=== PATIENT | male | born 1995 | race Caucasian/White ===

== ENCOUNTER 2023-03-04 00:31 | Emergency (ER) | payer OTHER, SELFPAY ==
[2023-03-04 00:44] VITALS: BP 124/72; PULSE 98; RESP 18; TEMP 36.6; O2SAT 97; BMI 37.5
--- NOTE | 2023-03-04 00:57 | XR_ITS ---
The [address] [address] Patient Name: PAUL SCHMITZ MRN: [id number] date: 1995 Sex: M Assigned Patient Location: ED.MAIN Current Patient Location: ER Accession/Order Number: [id number] Exam Date: 03/04/2023 01:30 Report Date: 03/04/2023 01:57 At the request of: HIPOLITO GEORGE Procedure: XR knee RT 4V XR knee RT 4V: HISTORY: trauma trauma COMPARISON: None available. TECHNIQUE: 4 views of the right knee are submitted. FINDINGS: BONES/JOINT SPACES: There is no acute fracture or dislocation. The joint spaces are well-maintained. SOFT TISSUES: There is significant prepatellar soft tissue swelling. XR/XR knee RT 4V IMPRESSION: Significant prepatellar soft tissue swelling. No definitive acute fractures appreciated. Electronically authenticated by: ELIAS JOSHUA Date: 03/04/2023 01:57
[2023-03-04] MEDS: KETOROLAC TROMETHAMINE 60 MG/2 ML VIAL IM (01:19)
--- NOTE | 2023-03-04 01:45 | ED.LOWEXI1 ---
HPI - Extremity Injury (Lower) General Chief Complaint: Extremity Injury, Lower Stated Complaint: KNEE SWOLLEN Time Seen by Provider: 03/04/23 00:48 Source: patient Mode of arrival: Wheelchair History of Present Illness HPI Narrative: The patient is coming to us with right knee pain that started after he was playing softball, the patient slid on his knee and the he has been having pain since then and the swelling has been progressively getting worse he was not able to put any weight on his knee, he have a history of old fracture in his left knee Related Data Previous Rx's Medication Instructions Recorded acetaminophen 650 mg 650 mg PO Q8H PRN pain #20 tabs 03/04/23 tablet,extended release (Tylenol Arthritis Pain) prednisone 50 mg tablet 50 mg PO DAILY #5 tabs 03/04/23 Allergies Allergy/AdvReac Type Severity Reaction Status Date / Time No Known Drug Allergies Allergy Verified 03/04/23 00:50 Review of Systems ROS Status of ROS 10 or more systems reviewed and unremarkable except as noted in history and below PFSH PFSH Social History Smoking status: Former smoker Exam Narrative Exam Narrative: Nurses notes and vital signs reviewed and patient is not hypoxic. General: Well-appearing and in no apparent distress. Skin: Warm, dry, no pallor noted. No rash. Head: Normocephalic, atraumatic. Neck: Supple, non-tender. Eye: Pupils are equal, round and EOMI. No scleral icterus. Ears, Nose, Mouth, and Throat: TM are clear, no nasal mucosal hypertrophy. Oral mucosa is moist, no posterior oropharynx erythema, uvula is mid-line Cardiovascular: Regular Rate and Rhythm without murmur, gallop or rub. Respiratory: No accessory muscle use or respiratory distress. Lungs are clear to auscultation, no wheezing, rales or rhonchi Chest Wall: no tenderness Back: No midline thoracic or lumbar vertebral tenderness. No CVA tenderness Musculoskeletal: Significant swelling of the right knee , limitation of movement due to pain and the patient have no ecchymosis and no open wounds some abrasion on top of the swelling GI: Abdomen is soft, non-distended. Normal bowel sounds. No masses appreciated. No tenderness to palpation. No rebound, guarding, or rigidity noted. Neurological: A&O x4. No cranial nerve dysfunction observed. No truncal ataxia. Moves all extremities. Sensation intact. Psychiatric: Cooperative and interactive. Normal mood and affect. Constitutional Vital Signs, click to edit/add: Last Vital Signs Pulse 98 H 03/04/23 00:44 Resp 18 03/04/23 00:44 BP 124/72 03/04/23 00:44 Pulse Ox 97 03/04/23 00:44 O2 Del Method Room Air 03/04/23 00:44 Course Vital Signs Vital signs: Vital Signs Pulse Rate 98 H 03/04/23 00:44 Respiratory Rate 18 03/04/23 00:44 Blood Pressure 124/72 03/04/23 00:44 Pulse Oximetry 97 03/04/23 00:44 Oxygen Delivery Method Room Air 03/04/23 00:44 Pulse Rate 98 H 03/04/23 00:44 Respiratory Rate 18 03/04/23 00:44 Blood Pressure 124/72 03/04/23 00:44 Pulse Oximetry 97 03/04/23 00:44 Oxygen Delivery Method Room Air 03/04/23 00:44 MDM - Extremity Injury (Lower) MDM Narrative Medical decision making narrative: Patient x-ray of the right knee showed no acute pathology but there is effusion Lester wrap was applied And the patient was also treated in the ER with Toradol and after applying Lester wrap nebulizer also applied and crutches Patient referred to orthopedic and outpatient and was started on prednisone and Tylenol for pain management The patient is to follow up with primary care physician in next 2-3 days or to return to the emergency department should any of the signs or symptoms worsen or new symptoms develop. The patient agrees with the following Diagnosis and Treatment plan and the patient will be discharged home. Discharge Plan Discharge Chief Complaint: Extremity Injury, Lower Clinical Impression: Injury of knee, ligament, Knee contusion Patient Disposition: Home, Self-Care Time of Disposition Decision: 02:09 Condition: Good Mode of Transportation: Private Vehicle Prescriptions / Home Meds: New prednisone 50 mg tablet 50 mg PO DAILY Qty: 5 0RF acetaminophen [Tylenol Arthritis Pain] 650 mg tablet extended release 650 mg PO Q8H PRN (Reason: pain) Qty: 20 0RF Instructions: Knee Sprain (ED), Knee Immobilizer (ED) Additional Instructions: follow up with Dr Griffith orthopedics Stand Alone Forms: Portal Instructions Referrals: DIVYA PAPPAS [Physician] - 1 week JANINE LEE [Primary Care Provider] - 1 week
== END 2023-03-04 02:44 | disposition home or self-care (01) ==
PROVIDERS: Emergency Provider Emergency Medicine; Family Provider Family Medicine; PCP Family Medicine
DX: S80.01XA Contusion of right knee, initial encounter (principal); S89.81XA Other specified injuries of right lower leg, initial encounter; W22.8XXA Striking against or struck by other objects, initial encounter; Y93.64 Activity, baseball; Z87.891 Personal history of nicotine dependence
CPT/HCPCS: 73564; 96372; 99284

== ENCOUNTER 2023-03-06 14:15 | Emergency (ER) | payer OTHER, SELFPAY ==
[2023-03-06 14:43] VITALS: BP 158/87; PULSE 68; RESP 20; TEMP 36.6; O2SAT 99; BMI 40.7
--- NOTE | 2023-03-06 14:51 | XR_ITS ---
The [address] [address] Patient Name: PAUL SCHMITZ MRN: [id number] date: 1995 Sex: M Assigned Patient Location: ED.MAIN Current Patient Location: ER Accession/Order Number: [id number] Exam Date: 03/06/2023 15:15 Report Date: 03/06/2023 15:32 At the request of: GERALDINE GALLARDO Procedure: XR knee RT 3V PROCEDURE: XR knee RT 3V HISTORY: Fall ; right knee pain after sliding into base COMPARISON: None. FINDINGS: BONES:No fracture, acute abnormality, or significant arthropathy. SOFT TISSUES: Subcutaneous tissue swelling anterior to the knee. EFFUSION:None visible. OTHER: Negative. XR/XR knee RT 3V IMPRESSION: 1. No acute bone abnormality. 2. Anterior subcutaneous edema versus bruising. Electronically authenticated by: JANINE DORADO Date: 03/06/2023 15:32
[2023-03-06 17:43] VITALS: PULSE 78
--- NOTE | 2023-03-06 18:44 | ED_ITS ---
HPI - General Adult General Chief complaint: Extremity Injury, Lower Stated complaint: NUMBNESS IN R LEG/FOOT/BRUISING HAS GOTTEN WORSE Time Seen by Provider: 03/06/23 14:50 Source: patient Mode of arrival: Wheelchair Limitations: no limitations History of Present Illness HPI narrative: Patient is a 27-year-old male who is complaining of acute right knee pain and subacute right knee pain from Monday from a softball injury. Monday night patient had a injury to the right knee after he was sliding into a base Playing softball. Patient had x-rays at that time. Patient has crutches and a knee immobilizer. Today patient was attempting to ambulate and he felt like his right knee gave out on him, and he fell directly on the right medial aspect of the right knee. Patient had ecchymosis of occurred. Patient is a more pain to the right knee, does have some range of motion to the right knee with slightly more pain. Patient is concerned about the ecchymosis and was concerned that he may have injured the bone since the x-ray on Monday was negative. Patient does have an appointment with orthopedic surgeon tomorrow, Dr. Lieberman. Patient's fianc? and children are at bedside. Patient does have lice in his right knee. No acute complaints. Patient's been taking anti-inflammatories at home over the weekend all advice. No other injury occurred with a fall this has right knee. This appears to be acute on subacute pain from Monday. . All systems are negative except as noted/marked. All systems reviewed and otherwise negative. . Nurses note and vital signs reviewed and patient is not hypoxic. General: The patient appears well and in no apparent distress. Patient is resting comfortably on cart. Patient is not toxic, lethargic, or listless Skin: Warm, dry, no pallor noted. There is no rash noted. No petechiae, purpura. Head: Normocephalic, atraumatic Eye: Normal conjunctiva, no drainage, EOMI. PERRL Ears, Nose, Mouth, and Throat: oral mucosa is moist. Nares patent. Mouth without vesicles. Cardiovascular: Regular Rate and Rhythm, no murmur, gallop, rub Respiratory: Patient is in no distress, no accessory muscle use, lungs are clear to auscultation, no wheezing, rales or rhonchi Musculoskeletal: Patient has full range of motion of all of the extremities Except to the right knee. Patient has flexion to approximately 45 degrees, patient does have full extension. Patient has no signs or symptoms of hemarthrosis. Patient does have ecchymosis to the medial aspect. Mild to moderate joint effusion noted. No obvious deformity. Patient is neurovascularly intact distally to the right knee. Otherwise no motor, sensory, or focal neurological deficits Neurological: A&O x3, normal speech Psychiatric: Cooperative Related Data Previous Rx's Medication Instructions Recorded acetaminophen 650 mg 650 mg PO Q8H PRN pain #20 tabs 03/04/23 tablet,extended release (Tylenol Arthritis Pain) prednisone 50 mg tablet 50 mg PO DAILY #5 tabs 03/04/23 hydrocodone 5 mg-acetaminophen 325 1 tab PO Q4H PRN pain #10 tabs 03/06/23 mg tablet Allergies Allergy/AdvReac Type Severity Reaction Status Date / Time No Known Drug Allergies Allergy Verified 03/04/23 00:50 PFSH PFSH Social History Smoking status: Never smoker Exam Constitutional Vital Signs, click to edit/add: Last Vital Signs Temp 98 F 03/06/23 14:43 Pulse 78 03/06/23 17:43 Resp 20 03/06/23 14:43 BP 158/87 H 03/06/23 14:43 Pulse Ox 99 03/06/23 14:43 Course Vital Signs Vital signs: Vital Signs Temperature 98 F 03/06/23 14:43 Pulse Rate 68 03/06/23 14:43 Respiratory Rate 20 03/06/23 14:43 Blood Pressure 158/87 H 03/06/23 14:43 Pulse Oximetry 99 03/06/23 14:43 Temperature 98 F 03/06/23 14:43 Pulse Rate 78 03/06/23 17:43 Respiratory Rate 20 03/06/23 14:43 Blood Pressure 158/87 H 03/06/23 14:43 Pulse Oximetry 99 03/06/23 14:43 Medical Decision Making MDM Narrative Medical decision making narrative: Repeat x-ray shows no acute abnormality besides joint effusion. Patient will continue knee immobilizer and crutches. Patient was educated again on the importance of ice. Patient was given a Livingston in the Emergency Room and given a prescription for for Living[place] to help with pain until he sees her orthopedic surgeon tomorrow in the office, Dr. Lieberman. No questions at discharge. Patient waited a lengthy amount of time secondary to Emergency Room volume, patient was very understandable. The x-ray report was reviewed, please see the official report. A copy of the right knee x-ray was given to the patient as well. Discharge Plan Discharge Chief Complaint: Extremity Injury, Lower Clinical Impression: Acute internal derangement of knee, Knee contusion Patient Disposition: Home, Self-Care Condition: Fair Mode of Transportation: Private Vehicle Prescriptions / Home Meds: New hydrocodone-acetaminophen 5-325 mg tablet 1 tab PO Q4H PRN (Reason: pain) Qty: 10 0RF No Action prednisone 50 mg tablet 50 mg PO DAILY Qty: 5 0RF acetaminophen [Tylenol Arthritis Pain] 650 mg tablet extended release 650 mg PO Q8H PRN (Reason: pain) Qty: 20 0RF Instructions: Knee Sprain (ED), Contusion in Adults (ED), Knee Immobilizer (ED) Additional Instructions: see Dr. Lieberman scheduled appointment tomorrow Stand Alone Forms: Portal Instructions Referrals: JANINE LEE [Primary Care Provider] - 1 week Discharge Date/Time: 03/06/23 18:57
[2023-03-06] MEDS: HYDROCODONE/ACETAMINOPHEN 5-325 MG TABLET 1 TAB PO (18:49)
== END 2023-03-06 18:57 | disposition home or self-care (01) ==
PROVIDERS: Emergency Provider Emergency Medicine; Family Provider Family Medicine; PCP Family Medicine
DX: S80.01XA Contusion of right knee, initial encounter (principal); M23.91 Unspecified internal derangement of right knee; W19.XXXA Unspecified fall, initial encounter
CPT/HCPCS: 73562; 99283

== ENCOUNTER 2023-07-10 16:25 | Emergency (ER) | payer OTHER, SELFPAY ==
[2023-07-10 16:30] VITALS: BP 122/78; PULSE 70; RESP 20; TEMP 36.6; O2SAT 98; BMI 40.6
--- NOTE | 2023-07-10 16:35 | ED.UPPEXIN1 ---
HPI - Extremity Injury (Upper) General Chief Complaint: Extremity Injury, Upper Stated Complaint: Upper extremity injury, shoulder Time Seen by Provider: 07/10/23 16:27 Source: patient Mode of arrival: walk-in Limitations: no limitations History of Present Illness HPI narrative: Patient is a 28-year-old male who presents to the emergency department for the evaluation of right shoulder pain. He states pain has been present for the last 6 weeks since he fell playing softball. He states he fell directly on the right shoulder, he was not evaluated for his injury. 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 He is unable to abduct the right shoulder and reports numbness and tingling to the right hand. No medications taken prior to arrival. Related Data Previous Rx's Medication Instructions Recorded acetaminophen 650 mg 650 mg PO Q8H PRN pain #20 tabs 03/04/23 tablet,extended release (Tylenol Arthritis Pain) prednisone 50 mg tablet 50 mg PO DAILY #5 tabs 03/04/23 hydrocodone 5 mg-acetaminophen 325 1 tab PO Q4H PRN pain #10 tabs 03/06/23 mg tablet ketorolac 10 mg tablet 10 mg PO TID PRN pain #10 tabs 07/10/23 methocarbamol 750 mg tablet 750 mg PO TID PRN pain #20 tabs 07/10/23 prednisone 20 mg tablet 60 mg PO DAILY 3 days #9 tabs 07/10/23 Allergies Allergy/AdvReac Type Severity Reaction Status Date / Time No Known Drug Allergies Allergy Verified 07/10/23 16:34 Review of Systems ROS Constitutional Denies: fever or chills Ears, nose, mouth, and throat Denies: throat pain or neck pain Cardiovascular Denies: chest pain Gastrointestinal Denies: nausea or vomiting Musculoskeletal Reports: extremity pain, joint pain and limited range of motion; Denies: back pain or neck pain Integumentary/Breast Denies: rash Hematologic/Lymphatic Denies: easy bruising PFSH PFSH Social History Smoking status: Never smoker Exam Narrative Exam Narrative: Gen.: Awake, alert, in no distress Head: Normocephalic, atraumatic ENT: Moist mucous membranes; C-spine is nontender with full range of motion Respiratory: No respiratory distress Extremities: Limited abduction of the right shoulder, pain with flexion and extension at the right elbow and the shoulder joint, 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 2+ right radial pulse. Diffuse tenderness of the right shoulder with no sulcus sign or obvious deformity Psych: Normal mood and affect Neuro: No focal neuro deficit Skin: Warm, dry, intact Constitutional Vital Signs, click to edit/add: Last Vital Signs Temp 97.9 F 07/10/23 16:30 Pulse 77 07/10/23 17:15 Resp 18 07/10/23 17:15 BP 126/87 07/10/23 17:15 Pulse Ox 98 07/10/23 17:15 Course Vital Signs Vital signs: Vital Signs Temperature 97.9 F 07/10/23 16:30 Pulse Rate 70 07/10/23 16:30 Respiratory Rate 20 07/10/23 16:30 Blood Pressure 122/78 07/10/23 16:30 Pulse Oximetry 98 07/10/23 16:30 Temperature 97.9 F 07/10/23 16:30 Pulse Rate 77 07/10/23 17:15 Respiratory Rate 18 07/10/23 17:15 Blood Pressure 126/87 07/10/23 17:15 Pulse Oximetry 98 07/10/23 17:15 MDM - Extremity Injury (Upper) MDM Narrative Medical decision making narrative: X-rays show questionable AC separation although the radiologist feels this is less likely than positioning noted on the x-ray. Patient also has a questionable nondisplaced fracture, his injury occurred 6 weeks ago so this is a possibility although he has no bony point tenderness on exam. He was placed in a right shoulder sling, he remains neurovascularly intact. He is referred to orthopedics for further evaluation and treatment. Muscle relaxants, steroids and NSAIDs given for home. Medical Records Attestation: I reviewed the patient's medical records. Imaging Data XR shoulder: Attestation: I have reviewed the pertinent imaging results. Radiologist's impression: Procedure: XR shoulder RT min 2V IMAGES REVIEWED: XR shoulder RT min 2V COMPARISON: None available. CLINICAL INDICATION: fall FINDINGS/IMPRESSION: On the first view the right AC joint appears borderline widened up to 8-9 mm. On the other views the right AC joint appears appropriate. Low suspicion for very low-grade right AC separation injury and more likely relates to patient positioning, although recommend clinical correlation for point tenderness. Questionable linear sclerotic focus involving the posterior lateral aspect of the humeral head. It is unclear if this could represent a healing nondisplaced fracture. Otherwise the right shoulder appears intact. Consider further evaluation with nonemergent MRI as clinically appropriate. Electronically authenticated by: SANTOSH MENEZES Date: 07/10/2023 17:31 Discharge Plan Discharge Chief Complaint: Extremity Injury, Upper Clinical Impression: Acute pain of right shoulder Patient Disposition: Home, Self-Care Time of Disposition Decision: 17:39 Condition: Good Prescriptions / Home Meds: New ketorolac 10 mg tablet 10 mg PO TID PRN (Reason: pain) Qty: 10 0RF methocarbamol 750 mg tablet 750 mg PO TID PRN (Reason: pain) Qty: 20 0RF prednisone 20 mg tablet 60 mg PO DAILY 3 Days Qty: 9 0RF No Action hydrocodone-acetaminophen 5-325 mg tablet 1 tab PO Q4H PRN (Reason: pain) Qty: 10 0RF prednisone 50 mg tablet 50 mg PO DAILY Qty: 5 0RF acetaminophen [Tylenol Arthritis Pain] 650 mg tablet extended release 650 mg PO Q8H PRN (Reason: pain) Qty: 20 0RF Instructions: Shoulder Pain (ED) Stand Alone Forms: Portal Instructions Referrals: Janine Chen MD [Physician] - 1 week JANINE LEE [Primary Care Provider] - 1 week
[2023-07-10] MEDS: ORPHENADRINE 60 MG/ 2 ML VIAL IM (16:48)
[2023-07-10] MEDS: KETOROLAC TROMETHAMINE 60 MG/2 ML VIAL IM (16:48)
[2023-07-10] MEDS: HYDROCODONE/ACET 5-325 MG TABLET 1 TAB PO (16:48)
--- NOTE | 2023-07-10 17:05 | XR_ITS ---
The [address] [address] Patient Name: PAUL SCHMITZ MRN: [id number] date: 1995 Sex: M Assigned Patient Location: ER Current Patient Location: ED.MAIN Accession/Order Number: [id number] Exam Date: 07/10/2023 16:59 Report Date: 07/10/2023 17:31 At the request of: GERALDINE GALLARDO Procedure: XR shoulder RT min 2V IMAGES REVIEWED: XR shoulder RT min 2V COMPARISON: None available. CLINICAL INDICATION: fall FINDINGS/IMPRESSION: On the first view the right AC joint appears borderline widened up to 8-9 mm. On the other views the right AC joint appears appropriate. Low suspicion for very low-grade right AC separation injury and more likely relates to patient positioning, although recommend clinical correlation for point tenderness. Questionable linear sclerotic focus involving the posterior lateral aspect of the humeral head. It is unclear if this could represent a healing nondisplaced fracture. Otherwise the right shoulder appears intact. Consider further evaluation with nonemergent MRI as clinically appropriate. Electronically authenticated by: SANTOSH MENEZES Date: 07/10/2023 17:31
[2023-07-10 17:15] VITALS: BP 126/87; PULSE 77; RESP 18; O2SAT 98
== END 2023-07-10 17:49 | disposition home or self-care (01) ==
PROVIDERS: Emergency Provider Emergency Medicine; Family Provider Family Medicine; PCP Family Medicine
DX: M25.511 Pain in right shoulder (principal)
CPT/HCPCS: 73030; 96372; 99284

== ENCOUNTER 2024-04-18 18:01 | Emergency (ER) | payer OTHER, SELFPAY ==
[2024-04-18 18:08] VITALS: BP 162/110; PULSE 98; TEMP 36.9; O2SAT 96; BMI 47.5
--- OUTSIDE RECORDS SUMMARY | 2024-04-18 18:10 | XMS_ITS | CCD ---
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 Name Role Phone PROVIDER, UNKNOWN Unavailable Unavailable PROVIDER, UNKNOWN Unavailable Unavailable Cuauhtemoc Lieberman Unavailable Sathya Harris Unavailable DO Jordan Queen Primary Care Provider DO Sathya Harris Attending Provider JORDAN QUEEN Primary Care Physician [phone] Nigel Lizarraga Referring Unavailable Nigel Lizarraga Admitting Unavailable Zia, Nigel A Attending Unavailable Brown, Nigel A Referring Unavailable Brown, Nigel A Admitting Unavailable Brown, Nigel A Attending Unavailable BROWN, NIGEL A Referring Unavailable BROWN, NIGEL A Attending Unavailable BROWN, NIGEL A Referring Unavailable BROWN, NIGEL A Attending Unavailable BROWN, NIGEL A Attending Unavailable ZIA, NIGEL A Attending Unavailable Kimberly, Sathya A Admitting Unavailable Kimberly, Sathay A Attending [facility] Kimberly, Sathya A Admitting Unavailable Kimberly, Sathya A Attending [facility] Unavailable Nigel Lizarraga R Admitting Unavailable Nigel Lizarraga R Attending Unavailable Bret [facility] Unavailable Kimberly, Sathya A Admitting Unavailable Kimberly, Sathya A Attending [facility] Unavailable Kimberly, Sathya A Admitting Unavailable Kimberly, Sathya A Attending Unavailable Bret [facility] Unavailable DO Jordan Queen Primary Care Provider MD Nigel Lizarraga Attending Provider Allergies Allergy Classification Reported Allergen(s) Allergy Type Date of Onset Reaction(s) Facility (1 source) No Known Medication Allergies; Translations: [No Known Medication Allergies] Propensity to adverse reactions (disorder) [facility] Repository Medications Current Medications Medication Drug Class(es) Dates Sig (Normalized) Sig (Original) acetaminophen 500 mg oral tablet (1 source) Start: 10-13-2023 take 1 tablet by mouth every four hours acetaminophen 500 mg Tab 500 mg = 1 tab(s), Oral, q4hr, # 60 tab(s), Refills(s) 0, [id number] 187.2, cm, 09/27/23 6:00:00 EST, Height/Length Dosing, 155, kg, 09/27/23 6:00:00 EST, Weight Dosing Start Date: 10/13/23 Status: Ordered gabapentin 300 mg oral capsule (1 source) Anti-epileptic Agent Start: 10-13-2023 End: 10-27-2023 take 1 capsule by mouth three times daily gabapentin 300 mg Cap 300 mg = 1 cap(s), Oral, TID, X 14 day(s), # 42 cap(s), Refills(s) 0, [id number] 187.2, cm, 09/27/23 6:00:00 EST, Height/Length Dosing, 155, kg, 09/27/23 6:00:00 EST, Weight Dosing Start Date: 10/13/23 Stop Date: 10/27/23 Status: Ordered ketorolac tromethamine 10 mg oral tablet (1 source) Nonsteroidal Anti-inflammatory Drug, Cyclooxygenase Inhibitor Start: 10-13-2023 End: 10-18-2023 take 1 tablet by mouth three times daily at mealtime ketorolac 10 mg Tab 10 mg = 1 tab(s), Oral, TID, take with food, X 5 day(s), # 15 tab(s), Refills(s) 0, Pharmacy: [facility]/pharmacy #[id number], 187.2, cm, 09/27/23 6:00:00 EST, Height/Length Dosing, 155, kg, 09/27/23 6:00:00 EST, Weight Dosing Start Date: 10/13/23 Stop Date: 10/18/23 Status: Ordered meloxicam 15 mg oral tablet (3 sources) Nonsteroidal Anti-inflammatory Drug Start: 10-13-2023 take 1 tablet by mouth once daily meloxicam 15 mg Tab 15 mg = 1 tab(s), Oral, Daily, start after finishing ketorolac, # 30 tab(s), Refills(s) 0, Pharmacy: [facility]/pharmacy #[id number], 187.2, cm, 09/27/23 6:00:00 EST, Height/Length Dosing, 155, kg, 09/27/23 6:00:00 EST, Weight Dosing Start Date: 10/13/23 Status: Ordered Start: 07-20-2023 take 1 tablet by lauri th every twenty-four hours Meloxicam 15 MG 1 tablet Orally Once a day for 30 days Jul, Not-Taking/PRN oxyCODONE hydrochloride 5 mg oral tablet (1 source) Opioid Agonist Start: 10-13-2023 take 1 tablet by mouth every four hours as needed for pain oxyCODONE 5 mg Tab 5 mg = 1 tab(s), Oral, q4hr, PRN Breakthrough Pain, # 30 tab(s), Refills(s) 0, Pharmacy: [facility]/pharmacy #[id number], 187.2, cm, 09/27/23 6:00:00 EST, Height/Length Dosing, 155, kg, 09/27/23 6:00:00 EST, Weight Dosing Start Date: 10/13/23 Status: Ordered predniSONE 5 mg oral tablet (1 source) Start: 08-17-2023 predniSONE 5 M G TAKE 5 PILLS BY MOUTH x 2 DAYS, THEN TAKE 4 PILLS BY MOUTH x 2 DAYS, THEN TAKE 3 PILLS BY MOUTH x 2 DAYS, THEN TAKE 2 PILLS BY MOUTH X 2 DAYS, THEN TAKE 1 PILL BY MOUTH x 2 DAY Orally daily for 10 days Aug, Active sodium chloride 0.111 meq/ml nasal spray (4 sources) Start: 06-12-2021 Sodium Chlorid e ([facility]) 0.65 % aerosol,spray Active 1 SPRAY INTRANASAL Twice daily 30 June 12, 2021 12:00am Completed/Discontinued Medications Medication Drug Class(es) Dates Sig (Normalized) Sig (Original) acetaminophen 325 mg / HYDROcodone bitartrate 5 mg oral tablet (12 sources) Opioid Agonist Start: 02-07-2021 End: 06-12-2021 take 1 tablet by mouth every four to six hours Hydrocodone-Acetami nophen Discontinued 1 TAB PO EVERY 4-6 HOURS 10 February 07, 2021 June 12, 2021 6:56pm Start: 09-27-2020 End: 11-03-2020 take 1 tablet by mouth three times daily Hydrocodone-Acetaminophen Discontinued 1 TAB PO Three times daily 9 September 27, 2020 November 03, 2020 1:58pm take 1 tablet by lauri th every six hours HYDROcodone-Acetaminophen 5-325 MG 1 tab let as needed Orally every 6 hrs Not-Taking/PRN doxycycline hyclate 100 mg oral tablet (4 sources) Tetracycline-class Drug Start: 02-07-2021 End: 06-12-2021 take 100 mg by mouth twice daily Doxycycline Hyclate Discontinued 100 MG PO Twice daily 26 05February 07, 2021 7:29pm June 12, 2021 6:56pm esomeprazole 20 mg delayed release oral capsule (4 sources) Proton Pump Inhibitor Start: 08-07-2020 End: 09-27-2020 take 1 capsule by mouth once daily Esomeprazole Magnesium (Nexium) 20 mg capsule,delayed release(DR/EC) Discontinued 20 MG PO Daily August 07, 2020 1:00am September 27, 2020 10:41pm lisinopril 10 mg oral tablet (4 sources) Angiotensin Converting Enzyme Inhibitor Start: 01-02-2020 End: 07-03-2020 take 10 mg by mouth once daily Lisinopril Discontinued 10 MG PO Daily January 02, 2020 12:00am July 03, 2020 1:59pm triamcinolone acetonide 40 mg/ml injectable suspension (2 sources) Corticosteroid Start: 07-20-2023 Kenalog-40 Jul, 40 mg Problems Active Problems Problem Classification Problem Date Documented Da te Episodic/Chronic Abdominal pain (4 sources) Abdominal pain; Translations: [Unspecified abdominal pain] 08-07-2020 Episodic Anxiety disorders (4 sources) Anxiety attack ; Translations: [Panic disorder [episodic paroxysmal anxiety]] 01-02-2020 Chronic Blindness and vision defects (4 sources) Photophobia; Translations: [Visual discomfort, unspecified] 06-12-2021 Episodic Essential hypertension (4 sources) Hypertensive disorder; Translations: [Essential (primary) hypertension] 01-02-2020 Chronic Fracture of lower limb (4 sources) Fracture of calcaneus; Translations: [Unspecified fracture of left calcaneus, initial encounter for closed fracture] 09-27-2020 Episodic Immunizations and screening for infectious disease (4 sources) Contact with or exposure to other viral diseases; Translations: [Lab test negative for COVID-19 virus] 11-03-2020 Episodic Joint disorders and dislocations; trauma-related (5 sources) Derangement of right knee; Translations: [Unspecified internal derangement of right knee] Chronic Other connective tissue disease (2 sources) Bicipital tendinitis, right shoulder Episodic Other connective tissue disease (2 sources) Other shoulder lesions, right shoulder Episodic Other fractures (2 sources) Nondisplaced fracture of shaft of right clavicle, subsequent encounter for fracture with routine healing Episodic Other gastrointestinal disorders (4 sources) Splenomegaly; Translations: [Splenomegaly, not elsewhere classified] 08-13-2021 Episodic Other injuries and conditions due to external causes (2 sources) H/O: fracture 09-26-2023 Episodic Other male genital disorders (4 sources) Acute pain of scrotum; Translations: [Scrotal pain] 02-07-2021 Episodic Other nervous system disorders (4 sources) Meralgia paresthetica; Translations: [Meralgia paresthetica, unspecified lower limb] 12-23-2019 Chronic Other non-traumatic joint disorders (3 sources) Derangement of right shoulder joint; Translations: [Other specific joint derangements of right shoulder, not elsewhere classified] Chronic Other non-traumatic joint disorders (3 sources) Other specific joint derangements of right shoulder, not elsewhere classified Chronic Other non-traumatic joint disorders (3 sources) Pain in right shoulder Episodic Other upper respiratory disease (4 sources) Frontal sinus pain; Translations: [Other specified disorders of nose and nasal sinuses] 06-12-2021 Episodic Other upper respiratory infections (4 sources) Acute sinusitis; Translations: [Acute sinusitis, unspecified] 07-03-2020 Episodic Residual codes; unclassified (4 sources) Other specified personal risk factors, not elsewhere classified; Translations: [At increased risk of exposure to COVID-19 virus] 07-03-2020 Episodic Sprains and strains (1 source) Superior glenoid labrum lesion of right shoulder, subsequent encounter; Translations: [Superior glenoid labrum lesion of right shoulder, subsequent encounter] Onset: 01-17-2024 Episodic Unclassified (2 sources) Rupture of rotator cuff of shoulder 09-26-2023 Unclassified (1 source) Nondisplaced fracture of shaft of right clavicle, subsequent encounter for fracture with routine healing; Translations: [Nondisplaced fracture of shaft of right clavicle, subsequent encounter for fracture with routine healing] Onset: 08-17-2023 Unclassified (1 source) Other specific joint derangements of right shoulder, not elsewhere classified; Translations: [Other specific joint derangements of right shoulder, not elsewhere classified] Onset: 07-20-2023 Unclassified (1 source) Pain in right shoulder; Translations: [Pain in right shoulder] Onset: 07-17-2023 Past or Other Problems Problem Classification Problem Date Documented Date Episodic/Chronic Fracture of upper limb (2 sources) Nondisplaced fracture of shaft of right clavicle, initial encounter for closed fracture; Translations: [Nondisplaced fracture of shaft of right clavicle, initial encounter for closed fracture] Onset: 07-20-2023 Episodic Other connective tissue disease (4 sources) Other symptoms and signs involving the musculoskeletal system; Translations: [Other symptoms and signs involving the musculoskeletal system] Onset: 07-20-2023 Episodic Spondylosis; intervertebral disc disorders; other back problems (2 sources) Radiculopathy, cervical region; Translations: [Radiculopathy, cervical region] Onset: 08-17-2023 Episodic Results Test Name Value Interpretation Reference Range Facility Consultation/Specialist Note on 01-23-2024 Consultation/Speciali st Note [id number]#1.00O [facility] Consultation/Specialist Note on 11-27-2023 Consultation/Speciali st Note [id number]#1.00OT [facility]Specialist Note on 10-30-2023 Consultation/Speciali st Note [id number]#1.00O [facility] IntraOperative Documentson 0 10-26-2023 IntraOperative Documents [id number] IFF Normal [facility] Operative Reporton Operative Report Patient: MAGED SCHMITZ Age: 28 years Sex: Male : 1995 Associated Diagnoses: None Author: MD Amado Ahmad F Postoperative Information Date/ Time: 10/13/2023 09:15:00 Preoperative Diagnosis: Acute postoperative pain., Per surgeon request for post-op pain management. Postoperative Diagnosis: Acute postoperative pain, Per surgeon request for post-op pain management. Procedure: Interscalene nerve block. Anesthesia Method: Local, Monitored anesthesia care. Performed by: MD Amado Ahmad F. Medications: Midazolam 2 mg. Complications: None. Notes: The patient was interviewed and examined prior to the planned operation. Anesthesia options were discussed including the peripheral nerve block of the brachial plexus in the interscalene region for postoperative analgesia. This discussion included a description of the procedure, risks and benefits, as well as alternatives to the block. The patient's questions were addressed and the patient elected to proceed with the interscalene nerve block. After a timeout, the patient was placed in the recumbent position and monitored with continuous pulse oximetry, non-invasive blood pressure, and electrocardiography. Following the time-out, the patient's pertinent anatomic landmarks were identified and marked with a felt-tipped pen before the procedure. The lateral neck and upper shoulder were prepped with CHG and sterilely draped. A 2 x 22 gauge Stimuplex needle was introduced under ultrasound guidance with a stimulator attached and operating. The patient was questioned intermittently and reported no paresthesias. With the needle held in place, and with intermittent attempts for aspiration of blood, 20 cc of 0.5% Ropivacaine was injected at 5cc intervals. Negative aspiration for blood was confirmed at every 5cc interval. Loss of twitch was observed at 0.4 mA. No signs or symptoms of intravascular or intraneural injection were evidenced. The patient tolerated the procedure well without complications. . Normal [facility] Comment on above: Result Comment: Elec tronically Signed By: MD Amado Ahmad F\.br\Date and Time Signed: 10/17/23 10:51 EDT Progress Note-Physicianon Progress Note-Physician Patient: JUANITO SCHMITZ Age: 28 years Sex: Male : 1995 Associated Diagnoses: None Author: MD Amado Ahmad F Postoperative Information Postoperative disposition: Postoperative disposition: To PACU. Optimetrix number: Optimetrix number [id number]. Anesthetic utilized: General. Health Status Allergies: Allergic Reactions (Selected) No Known Medication Allergies Physical Examination VS/Measurements Pain Assessment: Controlled. General: Awake, Alert, Appropriate. Respiratory: Adequate air exchange. Cardiovascular: Stable, Normal peripheral perfusion. Neurological: Normal sensory function, Normal motor function. Assessment Anesthetic outcome No anesthetic complications noted. Adequate pain relief. able to void without difficulty, able to ambulate with assist, tolerating PO intake, no N/V. Review / Management Condition: Stable. Plan Transfer/Discharge: Transfer/Discharge Discharge when meets criteria ( To home ). Normal [facility] Comment on above: Result Comment: Elec tronically Signed By: MD Amado Ahmad F\.br\Date and Time Signed: 10/17/23 10:52 EDT Progress Note-Physician Patient: JUANITO SCHMITZ Age: 28 years Sex: Male : 1995 Associated Diagnoses: None Author: MD Amado Ahmad F Preoperative Information Time patient last ate or drank:=== (npo 8 hours) Anesthesia history: Patient history: No prior anesthesia problems. Re-evaluation prior to induction: Completed, Initial evaluation reviewed. Review of Systems Respiratory: No shortness of breath. Cardiovascular: No chest pain. Hematology/Lymphatics: No bruising tendency, No bleeding tendency. Health Status Allergies: Allergic Reactions (All) No Known Medication Allergies Current medications: (Selected) Prescriptions Prescribed acetaminophen 500 mg Tab: 500 mg = 1 tab(s), Oral, q4hr, # 60 tab(s), Refills(s) 0, Pharmacy: [facility]/pharmacy #[id number], 187.2, cm, 09/27/23 6:00:00 EST, Height/Length Dosing, 155, kg, 09/27/23 6:00:00 EST, Weight Dosing gabapentin 300 mg Cap: 300 mg = 1 cap(s), Oral, TID, X 14 day(s), # 42 cap(s), Refills(s) 0, Pharmacy: [facility]/pharmacy #[id number], 187.2, cm, 09/27/23 6:00:00 EST, Height/Length Dosing, 155, kg, 09/27/23 6:00:00 EST, Weight Dosing ketorolac 10 mg Tab: 10 mg = 1 tab(s), Oral, TID, take with food, X 5 day(s), # 15 tab(s), Refills(s) 0, [id number] 187.2, cm, 09/27/23 6:00:00 EST, Height/Length Dosing, 155, kg, 09/27/23 6:00:00 EST, Weight Dosing meloxicam 15 mg Tab: 15 mg = 1 tab(s), Oral, Daily, start after finishing ketorolac, # 30 tab(s), Refills(s) 0, [id number] 187.2, cm, 09/27/23 6:00:00 EST, Height/Length Dosing, 155, kg, 09/27/23 6:00:00 EST, Weight Dosing oxyCODONE 5 mg Tab: 5 mg = 1 tab(s), Oral, q4hr, PRN Breakthrough Pain, # 30 tab(s), Refills(s) 0, [id number] 187.2, cm, 09/27/23 6:00:00 EST, Height/Length Dosing, 155, kg, 09/27/23 6:00:00 EST, Weight Dosing Problem list: All Problems Rotator cuff tear / SNOMED CT 8443263874 / Confirmed Hx of fracture of tibia - right / SNOMED CT 0675293230 / Confirmed Histories Past Medical History: No active or resolved past medical history items have been selected or recorded. Family History: No family history items have been selected or recorded. Procedure history: Arthroscopy of shoulder with repair (612903486) on 10/13/2023 at 28 Years. Tonsillectomy and adenoidectomy (799571102). Myringotomy and insertion of T tube (282326903). Social History Social & Psychosocial Habits Alcohol 10/13/2023 Use: Current Frequency: 1-2 times per month Substance Abuse 10/13/2023 Risk Assessment: Denies Substance Abuse Tobacco 10/13/2023 Tobacco Use: Former smoker, quit more . Physical Examination Please see preop flow sheet Airway: Mallampati classification: II (soft palate, fauces, uvula visible). Respiratory: Lungs are clear to auscultation. Cardiovascular: Normal rate, Regular rhythm. Neurologic: Alert. Review / Management Results review Interpretation of Outside Results Chest x-ray results Radiology results ECG interpretation Condition Plan [place] [employer] (ASA) physical status classification: Class III. Anesthetic Preoperative Plan Anesthesia: General. . Anesthetic plan, risks, benefits, and alternatives discussed with the patient and/or family. Risks discussed: nausea, vomiting, headache, sore throat, dental injury, serious complications. Patient verbalized understanding. Communication: face to face with patient 5 minutes. [facility] Comment on above: Result Comment: Elec tronically Signed By: MD Ingris, Charmaine Kwong\.johan\Date and Time Signed: 10/17/23 10:50 EDT Consent for Anesthesiaon Consent for Anesthesia [id number] TIFF [facility] Discharge Instructionson Discharge Instructions [id number]#1.00 TIFF [facility] IntraOperative Documentson 0 10-16-2023 IntraOperative Documents [id number]#1.00 TIFF [facility] Main OR Intraoperative Recor don 10-16-2023 Main OR Intraoperative Record [facility] Preoperative Documentson Preoperative Documents [id number] TIFF [facility] Consent for Treatmenton Consent for Treatment [id number]#1.00T IFF [facility] Discharge Instructionson Discharge Instructions JUANITO SCHMITZ :1995 Visit Date:10/13/2023 Inpatient Discharge Instructions Your Care Team Admitting Physician - Nigel Lizarraga DO Referring Physician - Nigel Lizarraga DO Reason for Your Visit RIGHT SHOULDER ROTATOR CUFF TEAR This Is Your Medications List acetaminophen (acetaminophen 500 mg Tab) gabapentin (gabapentin 300 mg Cap) ketorolac (ketorolac 10 mg Tab) meloxicam (meloxicam 15 mg Tab) oxycodone (oxyCODONE 5 mg Tab) Procedure History Myringotomy and insertion of T tube, Tonsillectomy and adenoidectomy. What to do next Instructions From Your Doctor No qualifying data available. New Follow Up Appointments after Discharge Follow Up with Nigel Lizarraga When: 10/24/2023 03:00 PM EDT Comments: Call for any problems. Keep scheduled appointment Where: [address] [place] [phone]- [facility] (1) Medications What How Much When Instructions Next Dose New acetaminophen (acetaminophen 500 mg Tab) 1 Tablets By Mouth Every [address] [facility]/pharmacy #[id number] New gabapentin (gabapentin 300 mg Cap) 1 Capsules By Mouth 3 times a day Duration: 14 Days [facility] New ketorolac (ketorolac 10 mg Tab) 1 Tablets By Mouth 3 times a day Duration: 5 Days take with food [facility] New meloxicam (meloxicam 15 mg Tab) 1 Tablets By Mouth Every day start after finishing ketorolac Pickup at [facility]/pharmacy #6173 New oxycodone (oxyCODONE 5 mg Tab) 1 Tablets By Mouth Every 4 hours as needed for Breakthrough Pain Pickup at [facility]/pharmacy #6173 [id number] [address], [place] [id number] [phone] Test Results No qualifying data available. Allergies No Known Medication Allergies Devices Implanted/Removed This Visit Implanted SHOULDER ARTHROSCOPY W/ POSSIBLE REPAIR Shoulder R KNOTLESS FIBERTAK (3), 10/13/2023, MR Safe - CHRISTINA: {01}[id number]{17}2 [id number]{[id number] IMPLANT LOOP N TACK TENDOESIS SYSTEM 10/13/2023, Safe - CHRISTINA: {01}[id number]{17}2 [id number]{10}[id number] Education Materials [place], [place] [facility] AFTER YOUR SHOULDER ARTHROSCOPY 1. Diet: Begin with a liquid diet and advance to your normal diet as tolerated. 2. Activity: You may remove your sling for bathing and to perform gentle range of motion exercises for the hand, wrist, and elbow. Bend and straighten your elbow and wrist several times per day to minimize stiffness. Keep your elbow in close to your side when performing these exercises. Do not move your shoulder until instructed by your surgeon. Swelling after surgery is normal and this will gradually decrease over time. All sports activities are discouraged, at least until your first post-operative visit at which time we will discuss how and when to resume sports. 3. Driving: Driving is legal. If you are involved in an accident, you must be able to prove that you maintained full control of your vehicle. For this reason, it is advised that you do not drive until your strength returns. You should not operate a vehicle or heavy machinery if you are taking narcotic pain medication. 4. Pain: If pain persists despite rest, elevation, and medication, contact your surgeon. You will be given a prescription for pain medications prior to leaving the hospital. Please inform us of any known drug allergy. If you have any problems with the medication, it should be discontinued and our office notified. The sensation of splashing of fluid inside the joint is not cause for concern. It represents residual fluids from surgery and they will be absorbed. Elevation of the arm and application of an ice pack will minimize swelling and discomfort in the first 48 hours after surgery. 5. Bandage: Soft compression dressing has been applied to your shoulder. This dressing should be comfortable and absorb any leakage of fluid or blood from your operated shoulder. Although the dressing may become moist or blood stained, this is not usually a cause for concern. If this persists, notify your surgeon. You may remove the dressing 48 hours after your surgery. If you have a bandage in your armpit, leave this in place until follow up. Apply betadine and band-aids to the small incisions once or twice daily as needed. 6. Incisions: The portals of entry may be sore and develop bruising over the next several days. The bruising eventually resolves and does not require any special care. Do not apply creams or lotions to your shoulder. Your portals will heal well on their own. 7. Bathing: You may shower 48 hours after surgery. Bathing or soaking in water should be avoided until your first post-operative visit. 8. Precautions: If you develop fever (101 degrees or above), increasing pain (not relieved by rest, elevation, ice, and medication as prescribed), red (more content not included)... Normal [facility] Comment on above: Result Comment: Elec tronically Signed By: Alyssa PHELPS, Kathy Starr\.br\Date and Time Signed: 10/13/23 12:47 EST H&P Updateon 10-13-2023 H&P Update [id number] TIFF Normal [facility] Inpatient Patient Summaryon 10-13-2023 Inpatient Patient Summary [address] [address] [facility] Clinical Discharge Instructions PERSON INFORMATION Name: JUANITO SCHMITZ PHYSICIANS Admitting Physician: Nigel Lizarraga DO Attending Physician: Nigel Lizarraga DO PCP: JORDAN QUEEN DO Discharge Diagnosis: Comment: PATIENT EDUCATION INFORMATION Instructions: Rebecca Lizarraga - After Your Shoulder Arthroscopy (Custom) Medication Leaflets: Follow up: MEDICATION LIST New Medications [facility]/pharmacy #[id number], [address], [place] [id number], [phone] acetaminophen (acetaminophen 500 mg Tab) 1 Tablets By Mouth every 4 hours. Refills: 0. gabapentin (gabapentin 300 mg Cap) 1 Capsules By Mouth 3 times a day for 14 Days. Refills: 0. ketorolac (ketorolac 10 mg Tab) 1 Tablets By Mouth 3 times a day for 5 Days. take with food. Refills: 0. meloxicam (meloxicam 15 mg Tab) 1 Tablets By Mouth every day. start after finishing ketorolac. Refills: 0. oxycodone (oxyCODONE 5 mg Tab) 1 Tablets By Mouth every 4 hours as needed Breakthrough Pain. Refills: 0. Comment: Normal [facility] Main OR PACU I Recordon Main OR PACU I Record PACU Phase I Docum ent Type FT Summary Primary Physician: Nigel Lizarraga DO Finalized Date/Time: 10/13/23 12:24:46 Pt. Name: JUANITO SCHMITZ Gonzalo Mock/Sex: 1995 Male Med Rec #: [id number] Physician: Nigel Lizarraga DO Financial #: [id number] Pt. Type: A Room/Bed: [place] [address] Admit/Disch: 10/13/23 06:17:22 - Institution: Case Times PACU I FT Pre-Care Text: Identifies barriers to communication and implements measures to provide psychological support Develops individualized plan of care, and ensures continuity of care Maintains patient's dignity and privacy, and maintains patient confidentiality Identifies and reports philosophical, cultural, and spiritual beliefs and values Identifies individual values and wishes concerning care Implements aseptic technique, and administers prescribed antibiotic therapy and immunizing agents as ordered Evaluates postoperative tissue perfusion Implements thermoregulation measures, and monitors body temperature Evaluates postoperative respiratory status Evaluates postoperative cardiac status Evaluates postoperative neurological status Assesses pain control, collaborated in initiating patient-controlled analgesia and implements alternative methods of pain control Verifies allergies, administers prescribed medications and solutions, evaluates response to medications Entry 1 In PACU I 10/13/23 11:46:00 Discharge from PACU 10/13/23 12:16:00 I Outcomes Met? Yes Last Modified By: Aimee Gillespie RN 10/13/23 12:24:28 Post-Care Text: The patient demonstrates knowledge of the expected response to the operative or invasive procedure The patient's care is consistent with the individualized perioperative plan of care The patient's right to privacy is maintained The patient's value system, lifestyle, ethnicity, and culture are considered, respected, and incorporated into the perioperative plan of care The patient participates in decisions affecting his or her perioperative plan of care The patient is free from signs and symptoms of infection The patient has wound/tissue perfusion consistent with or improved from baseline levels established preoperatively The patient is at or returning to normothermia at the conclusion of the immediate postoperative period The patient's respiratory function is consistent with or improved from baseline levels established preoperatively The patient's cardiovascular status is consistent with or improved from baseline levels established preoperatively The patient's cardiovascular status is consistent with or improved from baseline levels established preoperatively The patient demonstrates and/or reports adequate pain control throughout the perioperative period The patient received appropriate medication(s), safely administered during the perioperative period Acuity Level PACU I FT Entry 1 Start Time 10/13/23 11:46:00 Stop Time 10/13/23 12:16:00 Acuity Level Acuity Level I Last Modified By: Aimee Gillespie RN 10/13/23 12:24:42 Finalized By: Aimee Gillespie RN Document Signatures Signed By: Aimee Gillespie RN 10/13/23 12:24 Normal [facility] Main OR PACU II Recordon Main OR PACU II Record PACU Phase II Document Type FT Summary Primary Physician: Nigel Lizarraga DO Finalized Date/Time: 10/13/23 14:14:51 Pt. Name: JUANITO SCHMITZ/Sex: 1995 Male Med Rec #: [id number] Physician: Nigel Lizarraga DO Financial #: [id number] Pt. Type: A Room/Bed: [place] [address] Admit/Disch: 10/13/23 06:17:22 - Institution: Case Times PACU II FT Pre-Care Text: Identifies barriers to communication and implements measures to provide psychological support and determines knowledge level Develops individualized plan of care, and ensures continuity of care Maintains patient's dignity and privacy, and maintains patient confidentiality Identifies and reports philosophical, cultural, and spiritual beliefs and values Identifies individual values and wishes concerning care administers prescribed antibiotic therapy and immunizing agents as ordered, Evaluates postoperative tissue perfusion Implements thermoregulation measures, and monitors body temperature Evaluates postoperative respiratory status Evaluates postoperative cardiac status Evaluates postoperative neurological status Assesses pain control, collaborated in initiating patient-controlled analgesia and implements alternative methods of pain control Verifies allergies, administers prescribed medications and solutions, evaluates response to medications Entry 1 In PACU II 10/13/23 12:20:00 Discharge from PACU 10/13/23 13:45:00 II Outcomes Met? Yes Last Modified By: Kathy Shah RN 10/13/23 14:14:49 Post-Care Text: The patient demonstrates knowledge of the expected response to the operative or invasive procedure The patient's care is consistent with the individualized perioperative plan of care The patient's right to privacy is maintained The patient's value system, lifestyle, ethnicity, and culture are considered, respected, and incorporated into the perioperative plan of care The patient participates in decisions affecting his or her perioperative plan of care. The patient is free from signs and symptoms of infection The patient has wound/tissue perfusion consistent with or improved from baseline levels established preoperatively The patient is at or returning to normothermia at the conclusion of the immediate postoperative period The patient's respiratory function is consistent with or improved from baseline levels established preoperatively The patient's cardiovascular status is consistent with or improved from baseline levels established preoperatively The patient's neurological status is consistent with or improved from baseline levels established preoperatively The patient demonstrates and/or reports adequate pain control throughout the perioperative period The patient received appropriate medication(s), safely administered during the perioperative period Finalized By: Kathy Shah RN Document Signatures Signed By: Kathy Shah RN 10/13/23 14:14 Normal [facility] Main OR Preoperative Recordo n 10-13-2023 Main OR Preoperative Record PreOp Document Type FT Summary Primary Physician: Nigel Lizarraga DO Finalized Date/Time: 10/13/23 10:30:58 Pt. Name: JUANITO SCHMITZ./Sex: 1995 Male Med Rec #: [id number] Physician: Nigel Lizarraga DO Financial #: [id number] Pt. Type: Room/Bed: [place] [address] Admit/Disch: 10/13/23 06:17:22 - Institution: Case Times PreOp FT Pre-Care Text: Verifies consent for planned procedure, identifies individual values and wishes concerning care, includes family members in perioperative teaching Entry 1 Patient Times. In Pre Surgery 10/13/23 06:25:00 Out Pre Surgery 10/13/23 09:47:00 Outcomes Met? Yes Last Modified By: Linnette You 10/13/23 10:30:54 Post-Care Text: The patient participates in decisions affecting his or her perioperative plan of care Finalized By: Linnette You Document Signatures Signed By: Linnette You 10/13/23 10:30 Linnette You 10/13/23 10:30 Normal [facility] Monitor Recordon 10-13-2023 Monitor Record [id number] [facility] [id number] TIFF Normal [facility] Operative Reporton Operative Report Patient: MAGED SCHMITZ Age: 28 years Sex: Male : 1995 Associated Diagnoses: None Author: Nigel Lizarraga DO DATE OF SURGERY: 10/13/2023 SURGEON: Nigel Lizarraga D.O. SWISS TYPE SCREW MACHINE OPERATOR: YOVANNY Monae PREOPERATIVE DIAGNOSIS: Rotator cuff tear, possible labral tear, right shoulder POSTOPERATIVE DIAGNOSIS: Labral tear, subacromial bursitis, right shoulder PROCEDURE: 1. Examination under anesthesia, right shoulder 2. Right shoulder diagnostic arthroscopy 3. Arthroscopic anterior labral repair 4. Arthroscopic biceps tenodesis 5. Arthroscopic limited debridement with subacromial bursectomy ANESTHESIA: General with regional block ANESTHESIOLOGIST: ADONAY Lyon and Charmaine Amado MD IMPLANTS: 1. Anterior labral repair: Arthrex 1.8 knotless fibertak anchors x 3 2. Biceps tenodesis: Arthrex 4.75 mm biocomposite swivelock anchor OPERATIVE INDICATIONS: Juanito is a 28-year-old sqnui-egab-warfie[place] male who injured his right shoulder back in May when he dove for a ball while playing recreational softball. He has had continued pain and dysfunction despite conservative measures. His pain affects his activities of daily living, ability to sleep at night, and quality of life. He agreed to proceed with the above procedure after a discussion of the risks, benefits, complications, alternatives, and expectations. Please see office notes for further details. PROCEDURE IN DETAIL: The correct operative site was identified and marked in the preoperative holding area. The patient was administered intravenous antibiotics in accordance with SCIP protocol and was also administered 1 g of tranexamic acid intravenously. The patient was transported to the regional block room and administered a regional anesthetic nerve block by the anesthesiologist. I requested the regional block to assist with intraoperative and postoperative pain control. The patient was transported to the operating room, placed supine on the operating room table, and administered general anesthetic. After adequate anesthesia was obtained, the patient was placed into the beachchair position with all bony prominences well-padded. The head was secured in the padded workman. Surgical timeout was performed with all required personnel present. The operative shoulder was examined and found to have full forward flexion, abduction, internal and external rotation. 1+ anterior neqq-nul-ebmns, negative posterior [id number]. The operative upper extremity was prepped and draped in the usual sterile fashion. The forearm was secured in the Arthrex trimano pneumatic arm workman. Landmarks were demarcated. The glenohumeral joint was insufflated with 20 mL of injectable saline utilizing a spinal needle inserted posteriorly. A standard posterior portal was made. The arthroscope was introduced into the glenohumeral joint. An anterior portal in the rotator interval was made with outside-in technique using spinal needle localization. This was low in the rotator interval just above the upper border of the subscapularis. A 7 mm cannula was placed at the anterior portal. A hook probe was inserted and a diagnostic arthroscopy was carried out with the findings as noted below: 1. Superior labrum and biceps: The peelback sign of the superior labrum. The biceps tendon was free of intrasubstance splitting or tearing and was appropriately positioned within the bicipital groove. 2. Labrum: Tearing of the anteroinferior labrum from 4:30 - 6:30. There was a [place] complex present. Fraying to the posterior labrum but no detachment. 3. Articular surfaces: Glenoid and humeral head were free of articular changes. No glenoid bone loss. No Hill-Sachs lesion. 4. Rotator cuff: Intrasubstance splitting to the upper portion of the subscapularis, however, the footprint was intact. Supraspinatus and infraspinatus intact. 5. Rotator interval had thickened inflamed tissue. Axillary recess free of loose bodies. No HAGL or RHAGL. The rotator interval was opened with the [place] wand. An anterosuperolateral portal was established with outside in technique using spinal needle localization. 7 mm cannula was placed at the ASL portal and the arthroscope was transferred to this portal. A 7 mm cannula was placed at the posterior portal. The glenohumeral joint was examined once again. The arthroscope was placed back into the posterior portal. The anterior and inferior labrum were freed from the glenoid with an elevator. 1 mm of cartilage along the anterior glenoid was removed with a ringed curette. The glenoid was further prepared with the motorized shaver and rasp. The drill guide for the first fiber tack anchor was placed at the 6 o'clock position. A socket for the anchor was drilled. The anchor was inserted into the socket through the drill guide. The sutures were pulled to seat the anchor in the bone. A 45 degree suture lasso was used to duncan the torn inferior labrum. The repair suture from the anchor along wit (more content not included)... Normal [facility] Comment on above: Result Comment: Elec tronically Signed By: Nigel Lizarraga DO\.br\Date and Time Signed: 10/13/23 15:23 EST Outpatient Surgery Discharge Instructionon 10-13-2023 Outpatient Surgery Discharge Instruction [place] [address] Patient Discharge Instructions PERSON INFORMATION Name: JUANITO SCHMITZ Date of : 1995 Current Date: 10/13/2023 07:15:45 PHYSICIANS Admitting Physician: Nigel Lizarraga DO Discharge Diagnosis: JUANITO SCHMITZ has been given the following list of follow-up instructions, prescriptions, and patient education materials: IF UNABLE TO CONTACT YOUR PHYSICIAN AND YOU FEEL IT IS AN EMERGENCY, GO TO THE NEAREST EMERGENCY ROOM OR CALL 911 INADIR DAVEY W, have received the attached patient education materials/instructions and have verbalized understanding: May we do a follow up call? Yes No I was present when discharge instructions were given Patient Signature Date Clinican/Nurse Signature _ Date Follow up: Pharmacy Information: You may receive a survey from [facility] asking you to rate your care experience. Your feedback is important and will help us understand what we do well and how we can improve the quality of care we provide to you, your loved ones and our community. It?s an honor to serve you. Thank you for choosing [facility] HERE ARE THE MEDICATION CHANGES THAT OCCURRED DURING YOUR HOSPITAL STAY New Medications [id number], [address], [place] [phone], [phone] acetaminophen (acetaminophen 500 mg Tab) 1 Tablets By Mouth every 4 hours. Refills: 0. gabapentin (gabapentin 300 mg Cap) 1 Capsules By Mouth 3 times a day for 14 Days. Refills: 0. ketorolac (ketorolac 10 mg Tab) 1 Tablets By Mouth 3 times a day for 5 Days. take with food. Refills: 0. meloxicam (meloxicam 15 mg Tab) 1 Tablets By Mouth every day. start after finishing ketorolac. Refills: 0. oxycodone (oxyCODONE 5 mg Tab) 1 Tablets By Mouth every 4 hours as needed Breakthrough Pain. Refills: 0. PATIENT EDUCATION INFORMATION Instructions: [place], [place] [facility] AFTER YOUR SHOULDER ARTHROSCOPY 1. Diet: Begin with a liquid diet and advance to your normal diet as tolerated. 2. Activity: You may remove your sling for bathing and to perform gentle range of motion exercises for the hand, wrist, and elbow. Bend and straighten your elbow and wrist several times per day to minimize stiffness. Keep your elbow in close to your side when performing these exercises. Do not move your shoulder until instructed by your surgeon. Swelling after surgery is normal and this will gradually decrease over time. All sports activities are discouraged, at least until your first post-operative visit at which time we will discuss how and when to resume sports. 3. Driving: Driving is legal. If you are involved in an accident, you must be able to prove that you maintained full control of your vehicle. For this reason, it is advised that you do not drive until your strength returns. You should not operate a vehicle or heavy machinery if you are taking narcotic pain medication. 4. Pain: If pain persists despite rest, elevation, and medication, contact your surgeon. You will be given a prescription for pain medications prior to leaving the hospital. Please inform us of any known drug allergy. If you have any problems with the medication, it should be discontinued and our office notified. The sensation of splashing of fluid inside the joint is not cause for concern. It represents residual fluids from surgery and they will be absorbed. Elevation of the arm and application of an ice pack will minimize swelling and discomfort in the first 48 hours after surgery. 5. Bandage: Soft compression dressing has been applied to your shoulder. This dressing should be comfortable and absorb any leakage of fluid or blood from your operated shoulder. Although the dressing may become moist or blood stained, this is not usually a cause for concern. If this persists, notify your surgeon. You may remove the dressing 48 hours after your surgery. If you have a bandage in your armpit, leave this in place until follow up. Apply betadine and band-aids to the small incisions once or twice daily as needed. 6. Incisions: The portals of entry may be sore and develop bruising over the next several days. The bruising eventually resolves and does not require any special care. Do not apply creams or lotions to your shoulder. Your portals will heal well on their own. 7. Bathing: You may shower 48 hours after surgery. Bathing or soaking in water should be avoided until your first post-operative visit. 8. Precautions: If you develop fever (101 degrees or above), increasing pain (not relieved b (more content not included)... Normal [facility] Patient Education - Texton 0 10-13-2023 Patient Education - Text [place], [place] [facility] AFTER YOUR SHOULDER ARTHROSCOPY 1. Diet: Begin with a liquid diet and advance to your normal diet as tolerated. 2. Activity: You may remove your sling for bathing and to perform gentle range of motion exercises for the hand, wrist, and elbow. Bend and straighten your elbow and wrist several times per day to minimize stiffness. Keep your elbow in close to your side when performing these exercises. Do not move your shoulder until instructed by your surgeon. Swelling after surgery is normal and this will gradually decrease over time. All sports activities are discouraged, at least until your first post-operative visit at which time we will discuss how and when to resume sports. 3. Driving: Driving is legal. If you are involved in an accident, you must be able to prove that you maintained full control of your vehicle. For this reason, it is advised that you do not drive until your strength returns. You should not operate a vehicle or heavy machinery if you are taking narcotic pain medication. 4. Pain: If pain persists despite rest, elevation, and medication, contact your surgeon. You will be given a prescription for pain medications prior to leaving the hospital. Please inform us of any known drug allergy. If you have any problems with the medication, it should be discontinued and our office notified. The sensation of splashing of fluid inside the joint is not cause for concern. It represents residual fluids from surgery and they will be absorbed. Elevation of the arm and application of an ice pack will minimize swelling and discomfort in the first 48 hours after surgery. 5. Bandage: Soft compression dressing has been applied to your shoulder. This dressing should be comfortable and absorb any leakage of fluid or blood from your operated shoulder. Although the dressing may become moist or blood stained, this is not usually a cause for concern. If this persists, notify your surgeon. You may remove the dressing 48 hours after your surgery. If you have a bandage in your armpit, leave this in place until follow up. Apply betadine and band-aids to the small incisions once or twice daily as needed. 6. Incisions: The portals of entry may be sore and develop bruising over the next several days. The bruising eventually resolves and does not require any special care. Do not apply creams or lotions to your shoulder. Your portals will heal well on their own. 7. Bathing: You may shower 48 hours after surgery. Bathing or soaking in water should be avoided until your first post-operative visit. 8. Precautions: If you develop fever (101 degrees or above), increasing pain (not relieved by rest, elevation, ice, and medication as prescribed), redness or swelling in your shoulder or arm, please contact the office or the hospital. If you notice increased drainage from the operative portals after the third day, this should also be reported. 9. Return Visit: Your first post-operative follow-up appointment is generally between 7 and 14 days after discharge from the hospital. You will be given an appointment card with your appointment information. Do not hesitate to call the office or the hospital if any problems or questions arise before your appointment. Nigel Lizarraga, DO [facility] [address] [place] [address] Reviewed: Normal [facility] Consent for Procedure/Surger yon 10-11-2023 Consent for Procedure/Surgery [id number] TIFF Normal [facility] Lab - Other Lab [facility] - Other Lab Results [id number] OTGTIFF [facility] CBC w/ Auto Diffon 4 Basophil Absolute 0.1 E9/L Normal 0.0-0.2 [facility] Comment on above: Performed By: #### 2 [id number] ####[facility] [address] [place] [address] Basophils/100 WBC (Bld) 0.6 % Normal 0.0-2.0 [facility] Comment on above: Performed By: #### 2 [id number] ####[facility] [address] [place] [address] Eos Absolute 0.5 E9/L Normal 0.0-0.5 [facility] Comment on above: Performed By: #### 2 [id number] ####[facility] [address] [place] [address] Eosinophils/100 WBC (Bld) 4.8 % Normal 0.0-8.0 [facility] Comment on above: Performed By: #### 2 [id number] ####[facility] [address] [place] [address] Erythrocyte distribution width (RBC) [Ratio] 14.2 % Normal 10.9-14.2 [facility] Comment on above: Performed By: #### 2 [id number] ####[address] [address] Hematocrit (Bld) [Volume fraction] 48.0 % Normal 37.7-49.0 [facility] Comment on above: Performed By: #### 2 [id number] ####[address] [address] Hemoglobin (Bld) [Mass/Vol] 15.9 g/dL Normal 13.5-17.5 [facility] Comment on above: Performed By: #### 2 [id number] ####[address] [address] Lymph Absolute 2.4 E9/L Normal 1.0-4.0 [facility] Comment on above: Performed By: #### 2 [id number] ####[address] [address] Lymphocytes/100 WBC (Bld) 23.4 % Normal 14.0-50.0 [facility] Comment on above: Performed By: #### 2 [id number] ####[address] [address] MCH (RBC) [Entitic mass] 29.0 pg Normal 27.0-34.0 [facility] Comment on above: Performed By: #### 2 [id number] ####[address] [address] MCHC (RBC) [Mass/Vol] 33.4 g/dL Normal 31.4-36.0 [facility] Comment on above: Performed By: #### 2 [id number] ####[facility] [address] [place] [address] MCV (RBC) [Entitic vol] 86.6 fL Normal 80.0-100.0 [facility] Comment on above: Performed By: #### 2 [id number] ####[facility] [address] [place] [address] [place] Absolute 0.9 E9/L Normal 0.2-1.0 [facility] Comment on above: Performed By: #### 2 094581 ####[facility] [address] [place] [address] Monocytes/100 WBC (Bld) 9.0 % Normal 4.0-14.0 [facility] Comment on above: Performed By: #### 2 [id number] ####[facility] [address] [place] [address] Neutro Absolute 6.5 E9/L Normal 2.0-7.[address] [facility] Comment on above: Performed By: #### 2 442437 ####[facility] [address] [place] [address] Neutro Auto 62.2 % Normal 36.0-75.0 [facility] Comment on above: Performed By: #### 2 [id number] ####[facility] [address] [place] [address] Platelet 249.0 E9/L Normal 150.0-500.0 [facility] Comment on above: Performed By: #### 2 [id number] ####[facility] [address] [facility] [place] [address] Platelet mean volume (Bld) [Entitic vol] 9.6 fL Normal 6.4-10.8 [facility] Comment on above: Performed By: #### 2 054787 ####[facility] [address] [facility] [place] [address] RBC 5.5 E12/L Normal 4.3-5.9 [facility] Comment on above: Performed By: #### 2 [id number] ####[facility] [address] [place] [address] WBC 10.5 E9/L Normal 4.0-11.0 [facility] Comment on above: Performed By: #### 2 937925 ####[facility] [address] [place] [address] Consent for Treatmenton 09-08 Consent for Treatment [id number] IFF Normal [facility] HEMATOLOGYOrdered By: SYSTEM SYSTEM on 09-26-2023 Basophil Absolute 0.1 E9/L Normal 0.0 - 0.2 E9/L Remisol Heme Basophils/100 WBC (Bld) 0.6 % Normal 0.0 - 2.0 % [facility] Eos Absolute 0.5 E9/L Normal 0.0 - 0.5 E9/L [facility] Eosinophils/100 WBC (Bld) 4.8 % Normal 0.0 - 8.0 % [facility] Erythrocyte distribution width (RBC) [Ratio] 14.2 % Normal 10.9 - 14.2 % [facility] Hematocrit (Bld) [Volume fraction] 48.0 % Normal 37.7 - 49.0 % [facility] Hemoglobin (Bld) [Mass/Vol] 15.9 g/dL Normal 13.5 - 17.5 gm/dL [facility] Lymph Absolute 2.4 E9/L Normal 1.0 - 4.0 E9/L [facility] Lymphocytes/100 WBC (Bld) 23.4 % Normal 14.0 - 50.0 % [facility] Heme MCH (RBC) [Entitic mass] 29.0 pg Normal 27.0 - 34.0 pg Remisol Heme MCHC (RBC) [Mass/Vol] 33.4 g/dL Normal 31.4 - 36.0 gm/dL [facility] MCV (RBC) [Entitic vol] 86.6 fL Normal 80.0 - 100.0 fL [facility] Heme [place] Absolute 0.9 E9/L Normal 0.2 - 1.0 E9/L [facility] Monocytes/100 WBC (Bld) 9.0 % Normal 4.0 - 14.0 % [facility] Neutro Absolute 6.5 E9/L Normal 2.0 - 7.5 E9/L [facility] Neutro Auto 62.2 % Normal 36.0 - 75.0 % Remisol He me Platelet 249.0 E9/L Normal 150.0 - 500.0 E9/L [facility] Platelet mean volume (Bld) [Entitic vol] 9.6 fL Normal 6.4 - 10.8 fL [facility] RBC 5.5 E12/L Normal 4.3 - 5.9 E12/L [facility] WBC 10.5 E9/L Normal 4.0 - 11.0 E9/L [facility] Outside Recordson 09-07-2023 Outside Records [id number] TGTIFF Normal [facility] XR cerv spine AP/LAT/FLX/EXT on 08-17-2023 XR cerv spine AP/LAT/FLX/EXT [facility] [place] [address] XRay Report Signed Patient: Juanito Schmitz MR#: [id number] 010 : 1995 Acct:[id number] Age/Sex: 28 / M ADM Date: 08/17/23 [place] [facility] [place] Type[place] [facility] Attending Dr: Sathya Harris DO Copies to: Sathya Harris DO Ordering Provider: Sathya Harris DO Date of Service: 08/17/23 XR/XR cerv spine AP/LAT/FLX/EXT: Cervical radiculopathy CERVICAL SPINE 4 views: CLINICAL HISTORY: Right-sided neck and shoulder pain for 3 months. COMPARISON: None FINDINGS: Vertebral body and disc space heights appear maintained. No acute bony process. No prevertebral soft tissue swelling. No pathological motion on flexion or extension views. XR/XR cerv spine AP/LAT/FLX/EXT IMPRESSION: NO ACUTE BONY PROCESS OR SIGNIFICANT DEGENERATIVE CHANGE. Impression dictated by: Fransisco Patel Jr., D.O.08/17/2023 1:41 PM Dictation Location: [place] [address] Transcribed By: [facility] 08/17/23 1341 Dictated By: Fransisco Patel Jr, DO 08/17/23 1340 Signed By: 08/17/23 1341 Normal [facility] MR shoulder RT wo ajayon 12 MR shoulder RT wo con [facility] [place] [address] [place], [place] [id number] MRI Report Signed Patient: Juanito Schmitz MR#: [id number] 010 : 1995 Acct:[id number] Age/Sex: 28 / M ADM Date: 07/20/23 Loc: MR Room: Type: [facility] Attending Dr: Sathya Harris DO Copies to: Sathya Harris DO Ordering Provider: Sathya Harris DO Date of Service: 07/20/23 MR/MR shoulder RT wo con: Closed nondisplaced fracture of shaft of right clavicle, ini MRI RIGHT Shoulder without contrast TECHNIQUE: Multiplanar T1 and T2-weighted imaging obtained without contrast. HISTORY: Shoulder injury several weeks ago. Generalized pain and weakness. Unable to lift anything with RIGHT arm. COMPARISON: None BONE MARROW EDEMA: None FRACTURE: None AC JOINT: Mild degenerative changes. SHOULDER ROOF LIGAMENTS: The coracoacromial and coracoclavicular ligaments are intact. ROTATOR CUFF: There is a full-thickness tear of the anterior portion of supraspinatus tendon near the greater tuberosity insertion without significant retraction. Infraspinatus and subscapularis and teres minor tendons intact. ROTATOR CUFF INTERVAL: Unremarkable BURSAL FLUID: Small subacromial subdeltoid bursal fluid identified. GLENOID: Intact BICEPS LABRAL COMPLEX: Intact . LONG HEAD OF BICEPS TENDON: Biceps tendon are intact and in normal orientation. Edematous changes identified in region of the biceps anchor GLENOHUMERAL LIGAMENTS: The superior glenohumeral ligament is intact. The middle glenohumeral ligament is intact. The anterior and posterior glenohumeral ligaments are intact. JOINT EFFUSION: No significant joint effusion is seen. MUSCLES: Normal signal intensity of the muscles. NO SUBCUTANEOUS TISSUES: No subcutaneous abnormalities identified. MR/MR shoulder RT wo con IMPRESSION: Full-thickness tear of the anterior portion of supraspinatus tendon near the greater tuberosity insertion without significant retraction of tendon. Small amount of subacromial subdeltoid bursal fluid present. Inflammatory changes near the biceps tendon with intact and adequately oriented long head of biceps tendon. Impression dictated by: Garrick Rowan M.D.07/20/2023 1:37 PM Dictation Location: [facility]--01 Transcribed By: STOR[facility] 07/20/23 1337 Dictated By: Garrick Rowan DO 07/20/23 1304 Signed By: 07/20/23 1337 Normal [facility] XR shoulder RT min 2V*on XR shoulder RT min 2V* [facility] [place] [address] [place] [address] XRay Report Signed Patient: Juanito Schmitz MR#: [id number] 010 : 1995 Acct:[id number] Age/Sex: 28 / M ADM Date: 07/17/23 [place] [facility] [place]: Type: [facility] Attending Dr: Sathya Harris DO Copies to: Sathya Harris DO Ordering Provider: Sathya Harris DO Date of Service: 07/17/23 XR/XR shoulder RT min 2V*: Acute pain of right shoulder XR shoulder RT min 2V* 07/17/2023 8:57 AM SIGNS AND SYMPTOMS: Right shoulder pain with pain and swelling of the glenohumeral joint PROTOCOL: Frontal, Grashey, scapular Y, and axillary views of the right shoulder COMPARISON: 07/10/2023 FINDINGS: The acromioclavicular joint are preserved. There is mild glenohumeral joint space loss with mild subchondral sclerosis along the glenoid. There is no evidence of acute displaced fracture. No dislocation or subluxation. The visualized right hemithorax is grossly intact. XR/XR shoulder RT min 2V* IMPRESSION: No fracture or dislocation. There is mild glenohumeral joint space loss with mild subchondral sclerosis along the glenoid. Impression dictated by: Azam Johnson M.D.07/17/2023 1:27 PM Dictation Location: [facility] Transcribed By: [facility] 07/17/23 1327 Dictated By: Azam Johnson II, MD 07/17/23 1325 Signed By: 07/17/23 1327 Normal [facility] Rad - Other Radiology Report on 03-08-2023 Rad - Other Radiology Report [id number] TIFF Normal [facility] Rad - Other Radiology Report [id number] TIFF Normal [facility] Vital Signs Date Time Vital Sign Value Performing Clinician Facility 10-13-2023 13:36-0500 Heart rate 75 /min Nigel Bestcake [facility] 10-13-2023 13:36-0500 SaO2% (BldA) [Mass fraction] 95 % Nigel Bestcake [facility] 10-13-2023 13:35-0500 Body temperature 97.52 [degF] Nigel Bestcake [facility] 10-13-2023 13:35-0500 Diastolic blood pressure 70 mm[Hg] Nigel Bestcake [facility] 10-13-2023 13:35-0500 Mean blood pressure 94 mm[Hg] Nigel Bestcake [facility] 10-13-2023 13:35-0500 Systolic blood pressure 141 mm[Hg] Nigel Bestcake [facility] 10-13-2023 12:34-0500 Heart rate 70 /min Nigel Bestcake [facility] 10-13-2023 12:34-0500 SaO2% (BldA) [Mass fraction] 96 % Nigel Bestcake [facility] 10-13-2023 12:22-0500 Diastolic blood pressure 84 mm[Hg] Nigel Bestcake [facility] 10-13-2023 12:22-0500 Mean blood pressure 98 mm[Hg] Nigel Bestcake [facility] 10-13-2023 12:22-0500 Systolic blood pressure 126 mm[Hg] Nigel Lizarraga [facility] 10-13-2023 12:22-0500 Respiratory rate 15 /min Nigel Lizarraga [facility] 10-13-2023 12:15-0500 Blood Pressure Location Nigel Lizarraga [facility] 10-13-2023 12:15-0500 Body temperature 97.52 [degF] Nigel Lizarraga [facility] 10-13-2023 12:15-0500 Diastolic blood pressure 72 mm[Hg] Nigel Lizarraga [facility] 10-13-2023 12:15-0500 Heart rate 77 /min Nigel Lizarraga [facility] 10-13-2023 12:15-0500 Mean blood pressure 90 mm[Hg] Nigel Lizarraga [facility] 10-13-2023 12:15-0500 Respiratory rate 12 /min Nigel Lizarraga [facility] 10-13-2023 12:15-0500 SaO2% (BldA) [Mass fraction] 93 % Nigel Lizarraga [facility] 10-13-2023 12:15-0500 Systolic blood pressure 127 mm[Hg] Nigel Lizarraga [facility] 10-13-2023 12:00-0500 Mean blood pressure 85 mm[Hg] Nigel Lizarraga [facility] 10-13-2023 12:00-0500 Respiratory rate 13 /min Nigel Lizarraga [facility] 10-13-2023 11:55-0500 Blood Pressure Location Nigel Lizarraga [facility] 10-13-2023 11:55-0500 Mean blood pressure 90 mm[Hg] Nigel Lizarraga [facility] 10-13-2023 11:55-0500 Respiratory rate 20 /min Nigel Lizarraga [facility] 10-13-2023 11:46-0500 Body temperature 97.52 [degF] Nigel Lizarraga [facility] 10-13-2023 06:33-0500 Mean blood pressure 99 mm[Hg] Nigel Lizarraga [facility] 10-13-2023 06:33-0500 Heart rate 82 /min Nigel Lizarraga [facility] 10-13-2023 06:31-0500 Respiratory rate 16 /min Nigel Lizarraga [facility] 09-26-2023 13:49-0500 Heart rate 72 /min Nigel Lizarraga [facility] 09-26-2023 13:49-0500 SaO2% (BldA) [Mass fraction] 97 % Nigel Lizarraga [facility] 09-26-2023 13:48-0500 Body temperature 98.24 [degF] Nigel Lizarraga [facility] 09-26-2023 13:48-0500 Diastolic blood pressure 77 mm[Hg] Nigel Lizarraga [facility] 09-26-2023 13:48-0500 Mean blood pressure 94 mm[Hg] Nigel Lizarraga [facility] 09-26-2023 13:48-0500 Systolic blood pressure 127 mm[Hg] Nigel Lizarraga [facility] 09-26-2023 13:48-0500 Respiratory rate 16 /min Nigel Lizarraga [facility] 07-20-2023 14:00-0500 Body height 185.42 cm Sathya Kimberly Other [facility] Other 07-20-2023 14:00-0500 Body mass index (BMI) [Ratio] 46.83 kg/m2 Sathya Kimberly Other [facility] Other 07-20-2023 14:00-0500 Body weight 161.03 kg Sathya Kimberly Other [facility] Other Encounters Encounter Date Encounter Type Care Provider Facility Start: 01-17-2024 End: 01-17-2024 ambulatory Nigel Lizarraga Facility:[facility] Start: 01-17-2024 End: 01-17-2024 Discharged Recurring DO Jordan Queen Work Phone: [facility] [place] Work Phone: Start: 01-02-2024 End: 01-02-2024 ambulatory NIGEL LIZARRAGA Not Available Start: 11-21-2023 End: 11-21-2023 ambulatory NIGEL LIZARRAGA Not Available Start: 10-24-2023 End: 10-24-2023 ambulatory NIGEL LIZARRAGA Not Available Start: 10-13-2023 End: 10-13-2023 ambulatory Nigel Lizarraga Facility:[facility] Start: 10-13-2023 End: 10-13-2023 Admission to same day surgery center Nigel Lizarraga [facility] Start: 09-26-2023 End: 09-27-2023 ambulatory Nigel Lizarraga Facility:[facility] Start: 09-26-2023 End: 09-26-2023 Patient encounter procedure Nigel Lizarraga [facility] Start: 08-31-2023 End: 08-31-2023 ambulatory NIGEL LIZARRAGA Not Available Start: 08-17-2023 Office outpatient vi sit 15 minutes Sathya Kimberly [facility] Start: 08-17-2023 End: 08-17-2023 Discharged Recurring DO Jordan Queen Work Phone: [facility] [place] Work Phone: Start: 08-17-2023 End: 08-17-2023 Patient encounter procedure DO Jordan Queen Work Phone: [facility] Start: 08-17-2023 End: 08-17-2023 ambulatory DO Jordan Queen Work Phone: [facility] Other Start: 08-17-2023 End: 08-17-2023 Patient encounter procedure DO Jordan Queen Work Phone: [facility] Work Phone: Start: 07-20-2023 Office outpatient vi sit 25 minutes Sathya Harris [facility] Start: 07-20-2023 End: 07-20-2023 Patient encounter procedure DO Jordan Queen Work Phone: [facility] [place] Work Phone: Start: 07-20-2023 End: 07-20-2023 ambulatory DO Jordan Queen Work Phone: [facility] Work Phone: Start: 07-20-2023 End: 07-20-2023 Patient encounter procedure DO Jordan Queen Work Phone: [facility] Work Phone: Start: 07-17-2023 Office outpatient ne w 45 minutes Sathya Harris [facility] Start: 07-17-2023 End: 07-17-2023 Patient encounter procedure DO Jordan Queen Work Phone: [facility] Start: 07-17-2023 End: 07-17-2023 ambulatory DO Jordan Queen Work Phone: [facility] Other Start: 03-07-2023 End: 03-07-2023 ambulatory Cuauhtemoc Lieberman Other [facility] Other Start: 03-07-2023 Office outpatient ne w 45 minutes Cuauhtemoc Lieberman [facility] Start: 05-01-2017 End: 05-01-2017 Ambulatory UNKNOWN PROVIDER Facility:[facility] Procedures Date Procedure Procedure Detail Performing Clinician Start: 10-13-2023 Arthroscopy of shoulder Nigel Lizarraga Start: 08-17-2023 X-ray of cervical spine DO Jordan Queen Work Phone: Start: 07-20-2023 MRI of right shoulder D O Jordna Queen Work Phone: Start: 07-17-2023 Plain X-ray of right shoulder DO Jordan Queen Work Phone: Myringotomy and inse rtion of T tube Nigel Lizarraga Tonsillectomy and adenoidectomy Nigel Lizarraga Payers Date Payer Category Payer Self-pay [id number] 1995 Medicaid [id number] 2. [id number] 1995 Unknown [id number] 2.16.8 [id number] 1995 Unknown [id number] 2.16.8 [id number] 1995 Unknown [id number] 2.16.84 0.1.055535.3.579.2.1258 1995 Unknown [id number] 2.16.84 0.1.445368.3.579.2.9 1993 Unknown [id number] 2.16.84 0.1.891952.3.579.2.9 1993 Unknown [id number] 2.16.84 0.1.166910.3.579.2.1259 1995 Unknown [id number] 2.16.84 0.1.592158.3.579.2.1259 1995 Unknown [id number] 2.16.84 0.1.905580.3.579.2.1259 Medicaid Medicaid [id number] Unknown MMO [id number] Unknown [id number] 2.16.8 [id number] Unknown [id number] 2.16.8 40.1.615463.3.579.2.531 Unknown [id number] 2.16.8 40.1.838925.3.579.2.531 Unknown [id number] 2.16.8 40.1.032493.3.579.2.531 Unknown [id number] 2.16.8 40.1.391790.3.579.2.531 Social History Date Type Detail Facility Sex Assigned At [facility] Start: 07-17-2023 End: 07-17-2023 Tobacco smoking status NMIS Ex-smoker (finding) [facility] Start: 1995 Sex Assigned At Male F [facility] Medical Equipment Procedure Code Equipment Code Equipment Origin al Text Equipment Identifier Dates SHOULDER ARTHROS COPY W/ POSSIBLE REPAIR Nigel Lizarraga DO 10/13/23 Non Biological Shoulder R {[id number] [facility] Start: 10-13-2023 Functional Status Date Assessment Result Facility 09-26-2023 Functional Status No [facility] Clinical Notes 03-07-2023 to 10-13-2023 Note Date & Type Note Facility 10-13-2023 Hospital Discharg e instructions Patient Education 10/13/2023 12:44:37 Shoulder Cryocuff Patient Instructions - FT (CUSTOM) 10/13/2023 12:44:34 Post Op Patient Instructions - FT (CUSTOM) 10/13/2023 07:15:45 Rebecca Lizarraga - After Your Shoulder Arthroscopy (Custom) [place], [place] [facility] AFTER YOUR SHOULDER ARTHROSCOPY 1.Diet: Begin with a liquid diet and advance to your normal diet as tolerated. 2.Activity: You may remove your sling for bathing and to perform gentle range of motion exercises for the hand, wrist, and elbow. Bend and straighten your elbow and wrist several times per day to minimize stiffness. Keep your elbow in close to your side when performing these exercises. Do not move your shoulder until instructed by your surgeon. Swelling after surgery is normal and this will gradually decrease over time. All sports activities are discouraged, at least until your first post-operative visit at which time we will discuss how and when to resume sports. 3. Driving: Driving is legal. If you are involved in an accident, you must be able to prove that you maintained full control of your vehicle. For this reason, it is advised that you do not drive until your strength returns. You should not operate a vehicle or heavy machinery if you are taking narcotic pain medication. 4. Pain: If pain persists despite rest, elevation, and medication, contact your surgeon. You will be given a prescription for pain medications prior to leaving the hospital. Please inform us of any known drug allergy. If you have any problems with the medication, it should be discontinued and our office notified. The sensation of splashing of fluid inside the joint is not cause for concern. It represents residual fluids from surgery and they will be absorbed. Elevation of the arm and application of an ice pack will minimize swelling and discomfort in the first 48 hours after surgery. 5. Bandage: Soft compression dressing has been applied to your shoulder. This dressing should be comfortable and absorb any leakage of fluid or blood from your operated shoulder. Although the dressing may become moist or blood stained, this is not usually a cause for concern. If this persists, notify your surgeon. You may remove the dressing 48 hours after your surgery. If you have a bandage in your armpit, leave this in place until follow up. Apply betadine and band-aids to the small incisions once or twice daily as needed. 6.Incisions: The portals of entry may be sore and develop bruising over the next several days. The bruising eventually resolves and does not require any special care. Do not apply creams or lotions to your shoulder. Your portals will heal well on their own. 7.Bathing: You may shower 48 hours after surgery. Bathing or soaking in water should be avoided until your first post-operative visit. 8.Precautions: If you develop fever (101 degrees or above), increasing pain (not relieved by rest, elevation, ice, and medication as prescribed), redness or swelling in your shoulder or arm, please contact the office or the hospital. If you notice increased drainage from the operative portals after the third day, this should also be reported. 9.Return Visit: Your first post-operative follow-up appointment is generally between 7 and 14 days after discharge from the hospital. You will be given an appointment card with your appointment information. Do not hesitate to call the office or the hospital if any problems or questions arise before your appointment. Nigel Lizarraga, DO [facility] [address] [place] [address] Reviewed: Follow Up Care 08/31/2023 11:25:20 With:Nigel Lizarraga Address: [address] [place] [address] [facility] (1) When:10/24/2023 15:00:00 Comments:Call for any problems.Keep scheduled appointment [facility] 10-11-2023 Note [id number] [facility] 08-17-2023 Evaluation note Encounter Date Diagnosis Assessment Notes Aug, Biceps tendonitis, right (ICD-10 - M75.21) Aug, Right rotator cuff tendinitis (ICD-10 - M75.81) Aug, Nondisplaced fracture of shaft of right clavicle, subsequent encounter for fracture with routine healing (ICD-10 - S42.024D) Aug, Internal derangement of right shoulder (ICD-10 - M24.811) Aug, Right arm weakness (ICD-10 - R29.898) Aug, Acute pain of right shoulder (ICD-10 - M25.511) Aug, Cervical radiculopathy (ICD-10 - M54.12) Discussed with patient in length his symptoms. The symptoms in his shoulder as well as the new shooting pain down to his hand does not correlate with each other. MRI did show a possible full-thickness tear on the anterior aspect of the supraspinatus however I have a hard time believing that his symptoms are this severe and he is unable to participate in physical therapy secondary to this. He could have a cervical radiculopathy component secondary to his pain. He denies any specific myelopathic symptoms that could be concerning. We will begin a oral prednisone taper dose. We will also try to continue with physical therapy for cervical radiculopathy to see if his symptoms can improve. [facility] Other 12-14-2023 Evaluation note* Encounter Date Diagnosis Assessment Notes Treatment Notes Treatment Clinical Notes Jul, Biceps tendonitis, right (ICD-10 - M75.21) Jul, Right rotator cuff tendinitis (ICD-10 - M75.81) MRI was reviewed with the patient. This appears to be pain secondary to rotator cuff tendonitis. We discussed and demonstrated gentle motion exercise and rotator cuff strengthening exercise. Discussed the use of non-steroidal anti-inflammatory medication, cortisone injection, and physical therapy. A 4/1cc marcaine / kenalog cortisone injection was performed into the subacromial space under sterile technique. Patient tolerated the injection well with no adverse reaction. Patient given order for physical therapy. Patient to follow up in 8 weeks after 6 weeks of physical therapy. Jul, Nondisplaced fracture of shaft of right clavicle, subsequent encounter for fracture with routine healing (ICD-10 - S42.024D) Jul, Internal derangement of right shoulder (ICD-10 - M24.811) Jul, Right arm weakness (ICD-10 - R29.898) Jul, Acute pain of right shoulder (ICD-10 - M25.511) [facility] Other 12-11-2023 Evaluation note* Encounter Date Diagnosis Assessment Notes Treatment Notes Treatment Clinical Notes Jul, Closed nondisplaced fracture of shaft of right clavicle, initial encounter (ICD-10 - S42.024A) Discussed with patient and company on the patient's symptoms, exam, and imaging. Likely etiologies of the patient's symptoms were discussed. Patient is likely suffering from an old clavicle fracture as well as arm weakness and possible rotator cuff injury. He has had severe symptoms for about 1 week. He has tried and failed oral steroid and anti-inflammatories. His symptoms are disproportionate to his imaging findings. At this time we will obtain an MRI to asses for a potential rotator cuff tear or any other significant injury that would quire surgical intervention, which I am suspicious of due to his severe symptoms.. Advised he remains off work and avoid strenuous activity until we discuss his MRI results. He will follow up in office after the MRI. Jul, Internal derangement of right shoulder (ICD-10 - M24.811) Jul, Right arm weakness (ICD-10 - R29.898) Jul, Acute pain of right shoulder (ICD-10 - M25.511) [facility] Other 08-01-2023 Evaluation note* Encounter Date Diagnosis Assessment Notes Treatment Notes Treatment Clinical Notes Mar, Internal derangement of right knee (ICD-10 - M23.91) Mar, Other Patient present s with right knee injury. Radiographs reviewed and discussed in detail with patient. No abnormal bony process present on x-ray. There is large effusion with ecchymosis physically present upon exam. We will order an MRI of the involved knee. This will be essential to determine further treatment plans. Return with results. Patient may take ice and elevation and do gentle motion exercises at home. He may take Ibuprofen and Tylenol as needed. Patient is in agreement with treatment plan. I suspect ligamentous injury. MRI will be necessary to make further assessment [facility] Other Evaluation + Plan note Future Appointments Appointment Date:10/13/2023 09:30:00 AM Scheduled Provider: Location:[facility] Work Phone: History general Narrative - Reported* Type Description Date Medical History back pain Surgical History t & a Surgical History pet placement, bilateral Hospitalization History concussion [facility] Other Hospital course Narrative No data available for this section [facility] No data available for this section [facility] No data available for this section [facility] Summary Purpose Family History Relationship Condition Age at Onset Recorded Date/T arely Not Specified No pertinent family history Unknown Relationship Condition Age at Onset Recorded Date/T arely Not Specified No pertinent family history Unknown father Unknown Advance Directives Advance Directive Response Recorded Date/ Time Advance Directives No July 8:56am Advance Directive Response Recorded Date/ Time Advance Directives No July 9:56am Chief Complaint and Reason for Visit Chief Complaint S42.024A M24.811 R29 .898 Chief Complaint M25.511 Stat Mri Results S42.024A M24.811 R29.898 Follow Up From Therapy M54.12 R shoulder pain Chief Complaint superior glenoid les ion r shoulder 10/13/23 Additional Source Comments (unrecognized sect ion and content) No Status Records FoundNo Status Records FoundNo Status Records FoundNo Status Records FoundNo Status Records Found INFORMATION SOURCE (unrecogn ized section and content) DATE CREATED AUTHOR 01/31/2018 [facility] DATE CREATED AUTHOR AUTHOR'S ORGANIZ ATION 10/27/2023 [facility] DATE CREATED AUTHOR AUTHOR'S ORGANIZ ATION 01/02/2024 [facility] DATE CREATED AUTHOR AUTHOR'S ORGANIZ ATION 01/18/2024 [facility] DATE CREATED AUTHOR AUTHOR'S ORGANIZ ATION 01/25/2024 [facility] REASON FOR VISIT (unrecogniz ed section and content) Right Knee PainRight Shoulde r Injury (xr req 07/14 -hd)MRI Results Right ShoulderRecheck Right Shoulder Care Teams (unrecognized sec tion and content) Team Status: Active Member Role Status Dates Jordan Queen DO Primary Care Provider Active Team Status: Inactive Member Role Status Dates Jordan Queen DO Primary Care Provider Active Sathya Harris DO Attending Provider Active Team Status: Inactive Member Role Status Dates Jordan Queen DO Primary Care Provider Active Start: July 17, 2023 End: July 17, 2023 Sathya Harris DO Attending Provider Active St art: July 17, 2023 End: July 17, 2023 Team Status: Inactive Member Role Status Dates Provider Conversion Attending Provider Active St art: July 20, 2023 End: July 20, 2023 Team Status: Inactive Member Role Status Dates Jordan DO Bret Primary Care Provider Active Start: July 20, 2023 End: July 20, 2023 Sathya Harris DO Attending Provider Active St art: July 20, 2023 End: July 20, 2023 Team Status: Inactive Member Role Status Dates Provider Conversion Attending Provider Active St art: August 17, 2023 End: August 17, 2023 Team Status: Inactive Member Role Status Dates Jordan DO Bret Primary Care Provider Active Start: August 17, 2023 End: August 17, 2023 Sathya Harris , DO Attending Provider Active St art: August 17, 2023 End: August 17, 2023 Team Status: Inactive Member Role Status Dates Jordan Queen DO Primary Care Provider Active Start: January 17, 2024 End: January 17, 2024 Nigel Lizarraga MD Attending Provider Active Sta rt: January 17, 2024 End: January 17, 2024 Goals (unrecognized section and content) Goals may be documented in a n alternate section FOR RECORDS PERTAINING TO PATIENTS WHO ARE OR HAVE BEEN ENROLLED IN A CHEMICAL DEPENDENCY/SUBSTANCEABUSE PROGRAM, SOME INFORMATION MAY BE OMITTED. This clinical summary was aggregated from multiple sources. Caution should be exercised in using it in the provision of clinical care. This summary normalizes information from multiple sources, and as a consequence, information in this document may materially change the coding, format and clinical context of patient data. In addition, data may be omitted in some cases. CLINICAL DECISIONS SHOULD BE BASED ON THE PRIMARY CLINICAL RECORDS. [facility] [employer] provides no warranty or guarantee of the accuracy or completeness of information in this document.
--- NOTE | 2024-04-18 18:44 | CT_ITS ---
[address] [address] Patient Name: PAUL SCHMITZ MRN: [id number] date: 1995 Sex: M Assigned Patient Location: ER Current Patient Location: ER Accession/Order Number: [id number] Exam Date: 04/18/2024 18:49 Report Date: 04/18/2024 19:09 At the request of: NAHUN AVILA Procedure: CT head/brain wo con EXAMINATION: CT head/brain wo con HISTORY: headache COMPARISON: None. TECHNIQUE: CT head without contrast. Dose reduction techniques were achieved by using: automated exposure control and/or adjustment of mA and /or kV according to patient size and/or use of iterative reconstruction technique. FINDINGS: Negative for acute intracranial hemorrhage. Curvilinear calcification in the medial left occipital lobe, without edema. Ventricles and sulci normal in size. No hydrocephalus. No midline shift or pathologic extra-axial fluid collections. CT/CT head/brain wo con IMPRESSION: 1. Negative for acute intracranial hemorrhage. No convincing acute intracranial process. 2. Curvilinear calcification in the medial left occipital lobe, without adjacent edema or mass effect. This is nonspecific. Differential would be chronic calcification related to old injury, underlying meningioma, or vascular malformation. MRI of the brain with intravenous contrast recommended. Electronically authenticated by: ALFIE LOPEZ Date: 04/18/2024 19:09
--- NOTE | 2024-04-18 18:54 | ECG_ITS ---
[facility] Test Date: 2024-04-18 Pat Name: PAUL SCHMITZ Department: Room: - Gender: Male [employer] Developer: : 1995 Requested By: Order Number: [id number] Reading MD: HANNY ANG Measurements Intervals [place] Rate: 91 P: 37 NM: 140 QRS: -6 QRSD: 108 T: 19 QT: 338 QTc: 387 Interpretive Statements 1100 Sinus rhythm 9110 normal ECG No previous ECG available for comparison Electronically Signed On 04-18-2024 22:28:40 EDT by HANNY ANG
[2024-04-18 18:59] LABS: Basophils Absolute Auto 0.1 10^3/uL (0.0-0.1); Basophils Percent Auto 0.5 % (0.2-2.0); Eosinophils Absolute Auto 0.3 10^3/uL (0.0-0.7); Eosinophils Percent Auto 2.8 % (0.9-7.0); Hematocrit 47.1 % (42.0-54.0); Hemoglobin 15.4 g/dL (14.0-18.0); Immature Granulocytes Abs Auto 0.07 10^3/uL (0.00-0.03); Immature Granulocytes Pct Auto 0.6 % (0.0-0.5); Lymphocytes Absolute Auto 2.6 10^3/uL (1.2-3.8); Lymphocytes Percent Auto 23.2 % (20.5-60.0); Mean Corpuscular HGB Conc 32.7 g/dL (29.9-35.2); Mean Corpuscular Hemoglobin 28.7 pg (25.9-34.0); Mean Corpuscular Volume 87.9 fL (80.0-94.0); Monocytes Absolute Auto 0.6 10^3/uL (0.3-0.8); Monocytes Percent Auto 5.5 % (1.7-12.0); Neutrophils Absolute Auto 7.7 10^3/uL (1.4-6.5); Neutrophils Percent Auto 67.4 % (43.0-75.0); Platelet Count 274 10^3/uL (150-450); Red Blood Count 5.36 10^6/uL (4.70-6.10); Red Cell Distribution Width 13.3 % (11.0-15.0); White Blood Count 11.4 10^3/uL (4.0-11.0)
[2024-04-18] MEDS: ONDANSETRON PF 4 MG/2 ML VIAL IV (19:03)
[2024-04-18] MEDS: 0.9 % SODIUM CHLORIDE 1,000 ML 999 ML IV (19:03)
[2024-04-18 19:08] VITALS: BP 159/93; PULSE 87
[2024-04-18 19:17] LABS: Alanine Aminotransferase 39 U/L (16-63); Albumin Globulin Ratio 1.2; Albumin Level 4.1 g/dL (3.4-5.0); Alkaline Phosphatase 91 U/L (46-116); Anion Gap 10.3; Aspartate Amino Transferase 25 U/L (15-37); BUN Creatinine Ratio 13.4; Bilirubin Total 0.4 mg/dL (0.2-1.0); Calcium 9.1 mg/dL (8.5-10.1); Carbon Dioxide 28.5 mmol/L (21.0-32.0); Chloride 104 mmol/L (98-107); Estimated GFR (African America >60 (>=60); Estimated GFR (Non-African Ame >60 (>=60); Globulin 3.3 g/dL; Glucose 98 mg/dL (74-106); Potassium 3.8 mmol/L (3.5-5.1); Sodium 139 mmol/L (136-145); Total Protein 7.4 g/dL (6.4-8.2)
[2024-04-18] MEDS: KETOROLAC TROMETHAMINE 30 MG/ML VIAL IVP (19:39)
[2024-04-18 20:08] VITALS: BP 144/92
--- NOTE | 2024-04-18 20:11 | ED_ITS ---
HPI HPI - General Adult General Chief complaint: Headache Stated complaint: headache Time Seen by Provider: 04/18/24 18:33 Source: patient and family Mode of arrival: walk-in Limitations: no limitations History of Present Illness HPI narrative: 29-year-old male presents here with a chief complaint of frontal headache. Patient states he had a headache that began after intercourse. Patient states he has a borderline history of hypertension. He states after having intercourse the past 3 times he has developed these frontal headaches. He denies any blurred vision or double vision. He is alert and oriented. No focal neurological deficits. Upon arrival here to the room patient had a blood pressure of 158/87. Related Data Previous Rx's ?Medication ?Instructions ?Recorded acetaminophen 650 mg 650 mg PO Q8H PRN pain #20 tabs 03/04/23 tablet,extended release (Tylenol Arthritis Pain) prednisone 50 mg tablet 50 mg PO DAILY #5 tabs 03/04/23 hydrocodone 5 mg-acetaminophen 325 1 tab PO Q4H PRN pain #10 tabs 03/06/23 mg tablet ketorolac 10 mg tablet 10 mg PO TID PRN pain #10 tabs 07/10/23 methocarbamol 750 mg tablet 750 mg PO TID PRN pain #20 tabs 07/10/23 prednisone 20 mg tablet 60 mg (3 x 20 mg) PO DAILY 3 days 07/10/23 #9 tabs Allergies Allergy/AdvReac Type Severity Reaction Status Date / Time No Known Drug Allergies Allergy Verified 07/10/23 16:34 Opioid HPI Opioid Management Most Recent Opioid Data: Last Pain Scale 6 03/04/23 01:01 Last MAR Pain Assessment 04/18/24 19:39 Review of Systems ROS Narrative All Systems are negative except as noted/marked.All systems reviewed and otherwise negative [facility] Social History Smoking status: Never smoker Little interest or pleasure in doing things: not at all Feeling down, depressed, or hopeless: not at all Exam Narrative Exam Narrative: Nurses note and vital signs reviewed and patient is not hypoxic. General: The patient appears well and in no apparent distress. Patient is resting comfortably on cart. Skin: Warm, dry, no pallor noted. There is no rash noted. Head: Normocephalic, atraumatic Eye: Normal conjunctiva, no drainage, EOMI. PERRL Ears, Nose, Mouth, and Throat: oral mucosa is moist. Nares patent. Mouth without vesicles. Ear canals patent. Tm's without Erythema Cardiovascular: Regular Rate and Rhythm Respiratory: Patient is in no distress, no accessory muscle use, lungs are clear to auscultation, no wheezing, rales or rhonchi Back: non-tender, no CVA tenderness bilaterally to percussion. GI: Normal bowel sounds, no tenderness to palpation, no masses appreciated. No rebound, guarding, or rigidity noted. Musculoskeletal: The patient has no evidence of calf tenderness, no pitting edward ma, symmetrical pulses noted bilaterally Neurological: A&O x4, normal speech Psychiatric: Cooperative Constitutional Vital Signs, click to edit/add: Last Vital Signs Temp 98.5 F 04/18/24 18:08 Pulse 87 04/18/24 19:08 Resp 18 04/18/24 19:08 BP 144/92 H 04/18/24 20:08 Pulse Ox 96 04/18/24 18:08 O2 Del Method Room Air 04/18/24 18:08 Course Vital Signs Vital signs: Vital Signs Temperature 98.5 F 04/18/24 18:08 Pulse Rate 98 H 04/18/24 18:08 Respiratory Rate 18 04/18/24 18:08 Blood Pressure 162/110 H 04/18/24 18:08 Pulse Oximetry 96 04/18/24 18:08 Oxygen Delivery Method Room Air 04/18/24 18:08 Temperature 98.5 F 04/18/24 18:08 Pulse Rate 87 04/18/24 19:08 Respiratory Rate 18 04/18/24 19:08 Blood Pressure 144/92 H 04/18/24 20:08 Pulse Oximetry 96 04/18/24 18:08 Oxygen Delivery Method Room Air 04/18/24 18:08 Medical Decision Making MDM Narrative Medical decision making narrative: 29-year-old male presents here with a chief complaint of frontal headache. Patient states he had a headache that began after intercourse. Patient states he has a borderline history of hypertension. He states after having intercourse the past 3 times he has developed these frontal headaches. He denies any blurred vision or double vision. He is alert and oriented. No focal neurological deficits. Upon arrival here to the room patient had a blood pressure of 158/87. Upon arrival here to the emergency room IV was established lab work and CT scan were obtained. Patient blood pressure did improve while here being in the emergency room. CBC and BMP were within normal limits head CT was also negative. I did instruct patient to follow-up with his primary care physician to have his blood pressure evaluated continued doing monitoring of his blood pressure at home. Headache should return or worsening we can come back to the emergency room. Patient no focal neurologic deficits discharged home with diagnosis of headache. Differential Diagnosis Differential Diagnosis: Intracranial hemorrhage, hypertension, headache Medical Records Medical records reviewed: Yes I reviewed the patient's medical records Medical records narrative: 29-year-old male presents here with a chief complaint of frontal headache. Patient states he had a headache that began after intercourse. Patient states he has a borderline history of hypertension. He states after having intercourse the past 3 times he has developed these frontal headaches. He denies any blurred vision or double vision. He is alert and oriented. No focal neurological deficits. Upon arrival here to the room patient had a blood pressure of 158/87. Upon arrival here to the emergency room IV was established lab work and CT scan were obtained. Patient blood pressure did improve while here being in the emergency room. CBC and BMP were within normal limits head CT was also negative. I did instruct patient to follow-up with his primary care physician to have his blood pressure evaluated continued doing monitoring of his blood pressure at home. Headache should return or worsening we can come back to the emergency room. Patient no focal neurologic deficits discharged home with diagnosis of headache. Lab Data Lab results reviewed: Yes I reviewed the patient's lab results Labs: Lab Results 04/18/24 Range/Units 18:37 WBC 11.4 H (4.0-11.0) 10^3/uL RBC 5.36 (4.70-6.10) 10^6/uL Hgb 15.4 (14.0-18.0) g/dL Hct 47.1 (42.0-54.0) % MCV 87.9 (80.0-94.0) fL MCH 28.7 (25.9-34.0) pg MCHC 32.7 (29.9-35.2) g/dL RDW 13.3 (11.0-15.0) % Plt Count 274 (150-450) 10^3/uL MPV 11.0 (9.5-13.5) fL Neut % (Auto) 67.4 (43.0-75.0) % Lymph % (Auto) 23.2 (20.5-60.0) % [place] % (Auto) 5.5 (1.7-12.0) % Eos % (Auto) 2.8 (0.9-7.0) % Baso % (Auto) 0.5 (0.2-2.0) % Neut # (Auto) 7.7 H (1.4-6.5) 10^3/uL Lymph # (Auto) 2.6 (1.2-3.8) 10^3/uL [place] # (Auto) 0.6 (0.3-0.8) 10^3/uL Eos # (Auto) 0.3 (0.0-0.7) 10^3/uL Baso # (Auto) 0.1 (0.0-0.1) 10^3/uL Abs Immat Gran (auto) 0.07 H (0.00-0.03) 10^3/uL Imm/Tot Granulo (auto) 0.6 H (0.0-0.5) % Sodium 139 (136-145) mmol/L Potassium 3.8 (3.5-5.1) mmol/L Chloride 104 (98-107) mmol/L Carbon Dioxide 28.5 (21.0-32.0) mmol/L Anion Gap 10.3 BUN 13.0 (7.0-18.0) mg/dL Creatinine 0.97 (0.70-1.30) mg/dL Est GFR ( Amer) >60 (>=60) Est GFR (Non-Af Amer) >60 (>=60) BUN/Creatinine Ratio 13.4 Glucose 98 (74-106) mg/dL Calcium 9.1 (8.5-10.1) mg/dL Total Bilirubin 0.4 (0.2-1.0) mg/dL AST 25 (15-37) U/L ALT 39 (16-63) U/L Alkaline Phosphatase 91 (46-116) U/L Total Protein 7.4 (6.4-8.2) g/dL Albumin 4.1 (3.4-5.0) g/dL Globulin 3.3 g/dL Albumin/Globulin Ratio 1.[address] scan - head: Radiologist's impression: ITS Impressions Head CT 04/18/24 18:44 IMPRESSION: 1. Negative for acute intracranial hemorrhage. No convincing acute intracranial process. 2. Curvilinear calcification in the medial left occipital lobe, without adjacent edema or mass effect. This is nonspecific. Differential would be chronic calcification related to old injury, underlying meningioma, or vascular malformation. MRI of the brain with intravenous contrast recommended. Electronically authenticated by: ALFIE LOPEZ Date: 04/18/2024 19:09 Discharge Plan Discharge Chief Complaint: Headache Clinical Impression: Headache Patient Disposition: Home, Self-Care Time of Disposition Decision: 20:10 Condition: Good Prescriptions / Home Meds: No Action hydrocodone-acetaminophen 5-325 mg tablet 1 tab PO Q4H PRN (Reason: pain) Qty: 10 0RF ketorolac 10 mg tablet 10 mg PO TID PRN (Reason: pain) Qty: 10 0RF methocarbamol 750 mg tablet 750 mg PO TID PRN (Reason: pain) Qty: 20 0RF prednisone 20 mg tablet 60 mg PO DAILY 3 Days Qty: 9 0RF prednisone 50 mg tablet 50 mg PO DAILY Qty: 5 0RF acetaminophen [Tylenol Arthritis Pain] 650 mg tablet extended release 650 mg PO Q8H PRN (Reason: pain) Qty: 20 0RF Print Language: Tuvaluan Instructions: Hypertension (ED), General Headache (ED) Referrals: Jordan Chen MD [Physician] - 04/22/24 11:00 am JORDAN LEE [Primary Care Provider] - 1 week
[2024-04-18 20:23] VITALS: BP 144/92
== END 2024-04-18 20:22 | disposition home or self-care (01) ==
PROVIDERS: Physician Assistant; Emergency Provider Emergency Medicine; Family Provider Family Medicine; PCP Family Medicine
DX: R51.9 Headache, unspecified (principal); R03.0 Elevated blood-pressure reading, without diagnosis of hypertension
CPT/HCPCS: 36415; 70450; 80053; 85025; 93005; 96374; 96375; 99285; J1885; J2405